=== PATIENT | female | born 1960 | race Caucasian/White ===

== ENCOUNTER 2018-09-11 21:12 | Inpatient (IN) | payer MEDICARE, OTHER ==
[~2018-09-11] VITALS: Ht 157.5 cm; Wt 63.6 kg
[~2018-09-11 21:12] MED LIST: ASPI-831; ATOR40TA68; FLUT16SP24; NORC 5-325
[2018-09-11 21:33] VITALS: Ht 157.5 cm; Wt 63.6 kg
[2018-09-11] MEDS ORDERED: SOD CHLORIDE 0.9% 1,000 ML IV STA (22:02)
[2018-09-11] MEDS ORDERED: DILTIAZEM 25 MG INJ IV ONE ×2 (22:30)
[2018-09-11] MEDS ORDERED: AZITHROMYCIN 500MG/NS (PMX) 250 ML IV STA (22:38)
[2018-09-11] MEDS ORDERED: CEFTRIAXONE 1 GM/50 ML (PMX) 50 ML IVPB STA (22:38)
[2018-09-11] MEDS ORDERED: DILTIAZEM-D5W 125MG/125ML DRIP 125 ML IV SCH ×2 (23:00→23:30)
--- NOTE | 2018-09-11 23:18 | HP ---
Date/Time of Note Date/Time of Note DATE: 09/11/18 TIME: 23:18 Assessment/Plan VTE Prophylaxis Pharmacological prophylaxis: heparin Assessment/Plan Assessment/Plan 1. Atrial fibrillation with RVR -Status post Cardizem 10 mg IV x2, currently on a Cardizem drip, which we will continue -Consider beta-surjit, but cautious due to possible asthma exacerbation as well -Trend troponin -Obtain a 2D echo -Cardiology consult -Check TSH in a.m. 2. Pulmonary edema -Follow-up 2D echo -Will diurese 3. 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 Will add aspirin 4. Asthma Exacerbation -Supplemental oxygen, bronchodilators, steroid. Continue inhaled corticosteroid 5. Hypertension: BP within goal 6. Shortness of breath: Secondary to A. fib, pulmonary edema, asthma exacerbation and A-fib -See above for treatment plan Result Diagram: 09/11/18220109/11/182201 Results 24hrs Laboratory Tests Test 09/11/18 22:02 White Blood Count 6.2 Red Blood Count 4.50 Hemoglobin 13.4 Hematocrit 40.5 Mean Corpuscular Volume 90.0 Mean Corpuscular Hemoglobin 29.8 Mean Corpuscular Hemoglobin Concent 33.1 Red Cell Distribution Width 14.3 Platelet Count 226 Mean Platelet Volume 10.5 H Immature Granulocytes % 0.300 Neutrophils % 61.5 Lymphocytes % 30.2 Monocytes % 4.7 Eosinophils % 2.7 Basophils % 0.6 Nucleated Red Blood Cells % 0.0 Immature Granulocytes # 0.020 Neutrophils # 3.8 Lymphocytes # 1.9 Monocytes # 0.3 Eosinophils # 0.2 Basophils # 0.0 Nucleated Red Blood Cells # 0.0 Sodium Level 140 Potassium Level 3.8 Chloride Level 107 Carbon Dioxide Level 25 Anion Gap 8 Blood Urea Nitrogen 21 H Creatinine 0.63 Est Glomerular Filtrat Rate mL/min > 60 Glucose Level 144 Calcium Level 9.3 Troponin I 0.013 HPI/ROS Admit Date/Time Admit Date/Time Hx of Present Illness This is a 58-year-old female with a history of hypertension, asthma, CVA 2013 with residual dysarthria and right lower extremity weakness who presented to ER complaining of shortness of breath and intermittent palpitations. Denies chest pain. In the ER she was found to be in A-fib with RVR, heart rate in the low 100s. She was given Cardizem 10 mg IV x2 and then was started on Cardizem drip. First troponin negative. Chest x-ray shows the followin. Bilateral perihilar and lower lobe reticulonodular opacifications, suggestive of interstitial pulmonary edema or less likely pneumonia. 2. Mild cardiomegaly with central pulmonary vascular congestion. 3. Small left-sided pleural effusion. 4. Mild atherosclerotic calcification of the thoracic aorta. PMH/Family/Social Past Medical History PMH/Family/Social Past Medical History Medical History: other (see hpi) Coded Allergies: No Known Drug Allergy (Verified Allergy, Unknown, 04/25/16) Past Surgical History Past Surgical Hx: other (see hpi) Family History Significant Family History: no pertinent family hx Social History Alcohol Use: other Smoking Status: Unknown if ever smoked Drug Use: other Medications Current Medications Azithromycin 250 ml @ 250 mls/hr ONCE STAT IV ; Start 09/11/18 at 22:38; Stop 09/11/18 at 23:37 Diltiazem HCl 125 ml @ 5 mls/hr TITRATE IV ; Start 09/11/18 at 23:00 Ondansetron HCl (Zofran Inj) 4 mg ER BRIDGE PRN IV NAUSEA AND/OR VOMITING; Start 09/11/18 at 23:30; Stop 09/12/18 at 23:29 Acetaminophen (Tylenol Tab) 650 mg ER BRIDGE PRN PO MILD PAIN(1-3)OR ELEVATED TEMP; Start 09/11/18 at 23:30; Stop 09/12/18 at 23:29 Coded Allergies: Penicillins (Verified Allergy, Unknown, 09/11/18) Exam/Review of Systems Vital Signs Vitals Vital Signs Date Temp Pulse Resp B/P (MAP) Pulse Ox O2 O2 Flow FiO2 Time Delivery Rate 09/11/18 104 19 113/85 Room Air 22:40 (94) 09/11/18 98.1 98 21:33 Exam Constitutional: other (Shortness of breath noted. Wheezing) Head: normocephalic, atraumatic Eyes: PERRL Respiratory: diminished breath sounds, wheezing Cardiovascular: other (Tachycardic regular rhythm) Gastrointestinal: soft Extremities: normal pulses TOO MCNALLY MD Sep 11, 2018 23:18
[2018-09-11] MEDS ORDERED: ASPIRIN 81 MG TAB PO PRN (23:30)
[2018-09-11] MEDS ORDERED: NITROGLYCERIN (SL) 0.4 MG TAB SL PRN (23:30)
[2018-09-11] MEDS ORDERED: ONDANSETRON 4 MG INJ IV PRN ×2 (23:30)
[2018-09-11] MEDS ORDERED: NACL 0.9% 3 ML SYG IV SCH (23:30)
[2018-09-11] MEDS ORDERED: ACETAMINOPHEN 325 MG TAB PO PRN (23:30)
[2018-09-12] VITALS (13 sets, daily range): BP systolic 104–118; BP diastolic 65–86; PULSE 69–121; RESP 17–22
--- NOTE | 2018-09-12 00:09 | ERD ---
ER Documentation Chief Complaint Chief Complaint SOB x 1week,hx CVA HPI This is a 58-year-old female with a history of hypertension and previous CVA with residual dysarthria who presents to the emergency room for evaluation of shortness of breath for the past week. The patient states that she feels like her heart is beating fast and she has mild chest pain associated with this. The patient came to the ER for evaluation of her symptoms and denies any aggravating or relieving factors for her symptoms at this time. The patient localizes chest pain to the center of her chest and denies any radiation of the pain. ROS All systems reviewed and are negative except as per history of present illness. Medications Home Meds Reported Medications Fluticasone Propionate (Flonase (16 gm)) 1 [place] Rowlett, 1 DAILY 09/30/13 Aspirin (Aspirin) 81 Mg Chew, 1 DAILY 09/30/13 Atorvastatin* (Atorvastatin*) 40 Mg Tablet, 1 DAILY 09/30/13 Hydrocodone Bit-Acetaminophen* ([place]*) 1 Tab Tab, 1 09/30/13 Allergies Allergies: Coded Allergies: Penicillins (Verified Allergy, Unknown, 09/11/18) PMhx/Soc History of Surgery: No Anesthesia Reaction: No Hx Neurological Disorder: No Hx Respiratory Disorders: No Hx Cardiac Disorders: No Hx Psychiatric Problems: No Hx Miscellaneous Medical Probl: Yes (DIVERTICULITIS) Hx Alcohol Use: No Hx Substance Use: No Hx Tobacco Use: No Physical Exam Vitals Vital Signs Date Temp Pulse Resp B/P (MAP) Pulse Ox O2 O2 Flow FiO2 Time Delivery Rate 09/11/18 104 19 113/85 Room Air 22:40 (94) 09/11/18 116 21 117/91 Room Air 22:34 (100) 09/11/18 98.1 118 22 114/62 98 21:33 (79) Physical Exam INITIAL VITAL SIGNS: Reviewed by me GENERAL: The patient is well developed and appropriate for usual state of health in no apparent distress HEENT: Pupils equal, round, and reactive to light. EOMI. There is no scleral icterus. NECK: C-spine is soft and supple, there is no meningismus. There is no cervical lymphadenopathy. LUNGS: Breath sounds bilaterally HEART: Irregularly irregular rhythm, no murmurs, clicks, rubs or gallops. ABDOMEN: Soft, non-tender, non-distended. There are bowel sounds in all four quadrants. No rebound or guarding. EXTREMITIES: There is no peripheral cyanosis or edema. No focal swelling or erythema. NEUROLOGICAL: The patient moves all four extremities with 5/5 strength. Cranial nerves II - XII are intact. Normal gait. Alert and oriented SKIN: There is no apparent rash or petechiae. HEME/LYMPHATIC: There is no evidence of excessive bruising or lymphedema. PSYCHIATRIC: The patient does not appear anxious or depressed. Result Diagram: 09/11/18220109/11/182201 Results 24 hrs Laboratory Tests Test 09/11/18 22:02 White Blood Count 6.2 10^3/ul Red Blood Count 4.50 10^6/ul Hemoglobin 13.4 g/dl Hematocrit 40.5 % Mean Corpuscular Volume 90.0 fl Mean Corpuscular Hemoglobin 29.8 pg Mean Corpuscular Hemoglobin Concent 33.1 g/dl Red Cell Distribution Width 14.3 % Platelet Count 226 10^3/UL Mean Platelet Volume 10.5 fl Immature Granulocytes % 0.300 % Neutrophils % 61.5 % Lymphocytes % 30.2 % Monocytes % 4.7 % Eosinophils % 2.7 % Basophils % 0.6 % Nucleated Red Blood Cells % 0.0 /100WBC Immature Granulocytes # 0.020 10^3/ul Neutrophils # 3.8 10^3/ul Lymphocytes # 1.9 10^3/ul Monocytes # 0.3 10^3/ul Eosinophils # 0.2 10^3/ul Basophils # 0.0 10^3/ul Nucleated Red Blood Cells # 0.0 10^3/ul Sodium Level 140 mmol/L Potassium Level 3.8 mmol/L Chloride Level 107 mmol/L Carbon Dioxide Level 25 mmol/L Anion Gap 8 Blood Urea Nitrogen 21 mg/dl Creatinine 0.63 mg/dl Est Glomerular Filtrat Rate mL/min > 60 mL/min Glucose Level 144 mg/dl Calcium Level 9.3 mg/dl Troponin I 0.013 ng/ml Current Medications Medications Dose Sig/Kev Start Time Status Last (Trade) Ordered Route PRN Stop Time Admin Dose Reason Admin Diltiazem 10 mg ONCE ONCE 09/11/18 DC 09/11/18 HCl IV 22:30 09/11/18 22:07 (Cardizem Iv) 22:31 Sodium 1,000 ml @ Q1H STAT 09/11/18 DC 09/11/18 Chloride 1,000 mls/hr IV 22:02 09/11/18 22:06 23:01 Diltiazem 10 mg ONCE ONCE 09/11/18 DC 09/11/18 HCl IV 22:30 09/11/18 22:34 (Cardizem Iv) 22:31 Ceftriaxone 50 ml @ ONCE STAT 09/11/18 DC 09/11/18 Sodium 100 mls/hr IVPB 22:38 09/11/18 23:01 23:07 Azithromycin 250 ml @ ONCE STAT 09/11/18 DC 09/11/18 250 mls/hr IV 22:38 09/11/18 23:46 23:37 Diltiazem 125 ml @ 5 TITRATE IV 09/11/18 DC HCl mls/hr 23:00 09/11/18 23:22 Ondansetron 4 mg ER BRIDGE 09/11/18 HCl (Zofran PRN IV 23:30 09/12/18 Inj) NAUSEA AND/OR 23:29 VOMITING 650 mg ER BRIDGE 09/11/18 09/12/18 Acetaminophen PRN PO MILD 23:30 09/12/18 00:01 (Tylenol PAIN(1-3)OR 23:29 Tab) ELEVATED TEMP IV Flush 3 ml PER 09/11/18 (NS 3 ml) PROTOCOL IV 23:30 Ondansetron 4 mg Q6H PRN 09/11/18 HCl (Zofran IV NAUSEA 23:30 Inj) AND/OR VOMITING 1 tab Q5M PRN 09/11/18 Nitroglycerin SL CHEST 23:30 PAIN (Nitroglyceri n (Sl Tab) 0.4 Mg) 650 mg Q6H PRN 09/11/18 Acetaminophen PO PAIN 23:30 (Tylenol LEVEL 1-3 OR Tab) FEVER Enoxaparin 40 mg DAILY SC 09/12/18 Sodium 09:00 (Lovenox) Aspirin 1 mg Q6H PRN 09/11/18 (Aspirin) PO pain > 5 23:30 20 mg HS PO 09/12/18 Atorvastatin 21:00 Calcium (Lipitor) Fluticasone 1 spray DAILY 09/12/18 Propionate NASAL 09:00 (Flonase 0.05% Nasal) Metoprolol 25 mg Q12 PO 09/11/18 Tartrate 23:30 (Lopressor) 0.63 mg Q4H RESP 09/11/18 Levalbuterol THERAPY PRN 23:30 (Xopenex HHN Neb) sob/wheezing Ipratropium 0.5 mg Q4H RESP 09/11/18 [place] THERAPY PRN 23:30 (Atrovent HHN 0.02% sob/wheezing (Neb)) Diltiazem 125 ml @ 5 TITRATE IV 09/11/18 09/11/18 HCl mls/hr 23:30 23:34 Procedures/MDM EKG: Rate/Rhythm: A. fib with RVR QRS, ST, T-waves: Specific ST and T wave abnormalities Impression: A. fib with RVR EKG: #2 Rate/Rhythm: A. fib with RVR QRS, ST, T-waves: Specific ST and T wave abnormalities Impression: A. fib with RVR Chest X-ray 1V Interpreted by me: Soft Tissue: Bilateral perihilar and reticular nodular infiltrate suggestive of pneumonia versus pulmonary edema Bones: No acute abnormalities Mediastinum/Cardiac Silhouette/Lungs: [No acute abnormalities] This 58-year-old female with a history of hypertension and CVA presents to the ER for evaluation of heart palpitations and shortness of breath. The patient was in A. fib with RVR. She was given 20 mg of Cardizem and still remained in A. fib with RVR with a rate greater than 110. Her lab work looks normal at this time, troponin is negative however her chest x-ray does show what appears to be pulmonary edema versus pneumonia. Blood cultures were obtained and the patient was given 1 L of fluid and was started on the Rocephin and azithromycin for community-acquired coverage. Given the fact that the patient remained tachycardic and remained in A. fib with RVR the patient was started on the Cardizem drip. The patient has no history of A. fib with RVR however I do not have a time of onset of her symptoms she has had the symptoms for a few days and almost 1 week. She will need to be admitted at this time for rate control and p ossible anticoagulation given her chads score. The patient will be admitted to the telemetry floor under the care of Dr. Shanks Critical Care: Excluding all billable procedures Time: 48 minutes Treatments/Evaluations: Close monitoring and treatment of unstable vital signs, cardiorespiratory, and neurologic status, while maintaining tight balance of fluid, respiratory, and cardiac interventions. Departure Diagnosis: Primary Impression: Atrial fibrillation with RVR Additional Impressions: Bilateral pneumonia Pulmonary edema Shortness of breath Condition: Serious BUNNYMIRIAMGENNY LOTT Sep 12, 2018 00:09
[2018-09-12] MEDS: METOPROLOL 25 MG TAB PO SCH ×3 (02:04→20:34)
[2018-09-12] MEDS: LEVALBUTEROL (NEB) 0.63 MG/3 ML AMP HHN PRN ×2 (03:14→08:12)
[2018-09-12] MEDS: IPRATROPIUM (NEB) 0.5 MG/2.5 ML AMP HHN PRN ×2 (03:14→08:11)
[2018-09-12] MEDS ORDERED: FUROSEMIDE 20 MG INJ IV ONE (08:30)
[2018-09-12] MEDS ORDERED: METHYLPREDNISOLONE 125 MG INJ IV STA (08:33)
[2018-09-12] MEDS: LEVOFLOXACIN 500MG/D5W (PMX) 100 ML IVPB SCH ×2 (08:46→10:27)
[2018-09-12] MEDS ORDERED: ENOXAPARIN 40 MG/0.4 ML SYG SC SCH (09:00)
[2018-09-12] MEDS: FLUTICASONE 0.05% 16 GM NAS SPRAY NASAL SCH (09:00)
[2018-09-12] MEDS ORDERED: FUROSEMIDE 40 MG INJ IV ONE (09:00)
[2018-09-12] MEDS ORDERED: FUROSEMIDE 20 MG TAB PO SCH (09:00)
[2018-09-12] MEDS ORDERED: ASPIRIN (EC) 81 MG TAB PO SCH (09:00)
[2018-09-12] MEDS ORDERED: ALBUTEROL/IPRATROPIUM (NEB) 3 ML AMP HHN PRN (09:30)
[2018-09-12] MEDS ORDERED: FUROSEMIDE 20 MG INJ IV SCH (09:30)
[2018-09-12] MEDS: BUDESONIDE (NEB) 0.5MG/2ML AMP HHN SCH ×2 (09:30→20:00)
--- NOTE | 2018-09-12 13:02 | PN ---
Date/Time of Note Date/Time of Note DATE: 09/12/18 TIME: 13:01 Objective Vitals Vital Signs Date Temp Pulse Resp B/P (MAP) Pulse Ox O2 O2 Flow FiO2 Time Delivery Rate 09/12/18 97.9 69 17 109/68 96 11:58 (82) 09/12/18 2.0 08:15 09/12/18 Nasal 28 08:13 Cannula Intake and Output 09/11/18 09/11/18 09/12/18 1515:00 23:00 07:00 IntakeIntake Total 160 ml OutputOutput Total 0 ml BalanceBalance 160 ml Results Result Diagram: 09/12/18 0307 09/12/18 0307 Medications Medications Current Medications Ondansetron HCl (Zofran Inj) 4 mg ER BRIDGE PRN IV NAUSEA AND/OR VOMITING; Start 09/11/18 at 23:30; Stop 09/12/18 at 23:29 Acetaminophen (Tylenol Tab) 650 mg ER BRIDGE PRN PO MILD PAIN(1-3)OR ELEVATED TEMP Last administered on 09/12/18at 00:01; Admin Dose 650 MG; Start 09/11/18 at 23:30; Stop 09/12/18 at 23:29 IV Flush (NS 3 ml) 3 ml PER PROTOCOL IV ; Start 09/11/18 at 23:30 Ondansetron HCl (Zofran Inj) 4 mg Q6H PRN IV NAUSEA AND/OR VOMITING; Start 09/11/18 at 23:30 Nitroglycerin (Nitroglycerin (Sl Tab) 0.4 Mg) 1 tab Q5M PRN SL CHEST PAIN; Start 09/11/18 at 23:30 Acetaminophen (Tylenol Tab) 650 mg Q6H PRN PO PAIN LEVEL 1-3 OR FEVER; Start 09/11/18 at 23:30 Enoxaparin Sodium (Lovenox) 40 mg DAILY SC Last administered on 09/12/18at 08:56; Admin Dose 40 MG; Start 09/12/18 at 09:00 Atorvastatin Calcium (Lipitor) 20 mg HS PO ; Start 09/12/18 at 21:00 Fluticasone Propionate (Flonase 0.05% Nasal) 1 spray DAILY NASAL ; Start 09/12/18 at 09:00 Metoprolol Tartrate (Lopressor) 25 mg Q12 PO Last administered on 09/12/18at 08:47; Admin Dose 25 MG; Start 09/11/18 at 23:30 Influenza Virus Vaccine Quadrival (Fluzone) 0.5 ml ONCE ONCE IM* ; Start 09/13/18 at 10:00; Stop 09/13/18 at 10:01 Levofloxacin/ Dextrose 100 ml @ 100 mls/hr DAILY IVPB Last administered on 09/12/18at 10:27; Admin Dose 100 MLS/HR; Start 09/12/18 at 09:00 Aspirin (Halfprin) 81 mg DAILY PO Last administered on 09/12/18at 08:46; Admin Dose 81 MG; Start 09/12/18 at 09:00 Methylprednisolone Sodium Succinate (Solu-Medrol) 40 mg BID IV ; Start 09/13/18 at 21:00 Albuterol/ Ipratropium (Duoneb) 3 ml Q6HWA RESP THERAPY HHN ; Start 09/12/18 at 14:00 Albuterol/ Ipratropium (Duoneb) 3 ml Q2H RESP THERAPY PRN HHN shortness of breath; Start 09/12/18 at 09:30 Budesonide (Pulmicort (Neb)) 0.5 mg BID RESP THERAPY HHN ; Start 09/12/18 at 09:30 Furosemide (Lasix) 20 mg DAILY IV ; Start 09/13/18 at 09:00 VTE Prophylaxis Risk score (from Ns)>0 risk: 4 SCD applied (from [facility]): Yes Lines/Catheters IV Catheter Type: Fink in Place: No Assessment/Plan Hospital Course Subjective Patient feeling much better Objective Physical exam General: Patient is laying in bed and answers questions appropriately Mentation: Patient is alert and oriented 4, Head: Normocephalic atraumatic Eyes: EOMI, pupils reactive to light Neck: Supple, nontender, midline Respiratory: Wheezing to auscultation bilaterally Cardiovascular: regular rate, no obvious murmurs Gastrointestinal: non-tender to palpation, bowel sounds heard. Neurological: Moves all extremities spontaneously, mild R sided deficits when compared to left (chronic) Skin: No new skin lesions Assessment and plan Acute hypoxic respiratory failure -Secondary to pulmonary edema and asthma exacerbation Asthma exacerbation -DuoNeb, budesonide -IV steroids -02 A. 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 fib with RVR, cardiology consultation pending JAMES ANGELES Sep 12, 2018 13:01
[2018-09-12] MEDS: ALBUTEROL/IPRATROPIUM (NEB) 3 ML AMP HHN SCH ×2 (13:54→20:00)
[2018-09-12] MEDS: ACETAMINOPHEN 325 MG TAB PO PRN ×2 (15:16→17:25)
--- NOTE | 2018-09-12 15:16 | CONS ---
Date/Time of Note Date/Time of Note DATE: 09/12/18 TIME: 15:11 Assessment/Plan Assessment/Plan Hospital Course 1. Atrial fibrillation rapid ventricular response: Unclear if this is a new onset or chronic 2. History of CVA 3. Mild hypertension 4. Hypoxemic respiratory failure probably related to above 5. Pulmonary vascular congestion/congestive heart failure acute with acute on chronic probably secondary diastolic heart failure and possible valvular heart disease 6. Dyslipidemia Recommendations: I will start the patient on full anticoagulation with Eliquis. Echocardiogram has been ordered. I will waiting to be done to evaluate personally IV Lasix has been given Electrolyte to be correct as needed metoprolol to be continued. IV Cardizem will be given as needed basis IV digoxin will be given to control the heart rate better We will monitor closely on the telemetry Statins to be continued given history of CVA Thank you for his referral will continue to follow along with you EMILY CASTAÑEDA MD [facility] Result Diagram: 09/12/18 0307 09/12/18 0307 Results 24hrs Laboratory Tests Test 09/11/18 22:02 09/11/18 23:54 09/12/18 03:07 09/12/18 07:30 White Blood Count 6.2 7.1 Red Blood Count 4.50 4.01 L Hemoglobin 13.4 11.9 L Hematocrit 40.5 36.0 L Mean Corpuscular Volume 90.0 89.8 Mean Corpuscular 29.8 29.7 Hemoglobin Mean Corpuscular 33.1 33.1 Hemoglobin Concent Red Cell Distribution 14.3 14.6 H Width Platelet Count 226 197 Mean Platelet Volume 10.5 H 10.6 H Immature Granulocytes % 0.300 0.400 Neutrophils % 61.5 56.9 Lymphocytes % 30.2 34.9 Monocytes % 4.7 4.8 Eosinophils % 2.7 2.6 Basophils % 0.6 0.4 Nucleated Red Blood 0.0 0.0 Cells % Immature Granulocytes # 0.020 0.030 Neutrophils # 3.8 4.0 Lymphocytes # 1.9 2.5 Monocytes # 0.3 0.3 Eosinophils # 0.2 0.2 Basophils # 0.0 0.0 Nucleated Red Blood 0.0 0.0 Cells # Sodium Level 140 143 Potassium Level 3.8 4.0 Chloride Level 107 112 H Carbon Dioxide Level 25 24 Anion Gap 8 7 Blood Urea Nitrogen 21 H 20 Creatinine 0.63 0.56 Est Glomerular Filtrat > 60 > 60 Rate mL/min Glucose Level 144 113 Calcium Level 9.3 8.5 Troponin I 0.013 0.014 0.014 0.012 Creatine Kinase 48 38 45 Creatine Kinase Index 1.8 2.6 2.3 Creatinine Kinase MB 0.85 0.97 1.03 (Mass) Hemoglobin A1c 5.7 Lactic Acid Level 0.9 Magnesium Level 1.9 Total Bilirubin 0.2 Direct Bilirubin 0.00 Indirect Bilirubin 0.2 Aspartate Amino 30 Transf (AST/SGOT) Alanine 33 Aminotransferase (ALT/SG PT) Alkaline Phosphatase 118 Total Protein 6.4 Albumin 3.5 Globulin 2.90 Albumin/Globulin Ratio 1.20 Triglycerides Level 313 H Cholesterol Level 157 LDL Cholesterol, 64 Calculated HDL Cholesterol 30 L Cholesterol/HDL Ratio 5.2 Thyroid Stimulating 0.700 Hormone (TSH) Test 09/12/18 11:49 Creatine Kinase 51 Creatine Kinase Index 1.9 Creatinine Kinase MB 0.99 (Mass) Troponin I < 0.012 Consultation Date/Type/Reason Admit Date/Time Date of Consultation: Sep 12, 2018 Type of Consult cv Reason for Consultation AFIB Requesting Provider: JAMES ANGELES Hx of Present Illness Interventional cardiology consultation note Chief complaint: Shortness of breath Reason for consult: Atrial fibrillation History of present illness: Thank you for this referral. History was obtained from the patient, from dis cussion with her daughter review of the chart review of the old chart discussion with physician staff. This is a very pleasant 58-year-old female history of CVA in the past who has been having increasing shortness of breath over the past few days. Patient has also had some cough but no phlegm. No fever no chills. She was seen in the emergency room of the noted to have atrial fibrillation rapid ventricular response. She denies any chest pain or pressure to me. She is not aware of any history of atrial fibrillation in the past however she might have been on blood thinners in the past which she has stopped due to insurance reason. She denies PND orthopnea to me. Denies any oximetry edema. Allergies: Penicillins Medications were reviewed as per medical reconciliation sheet Family history: No history of early coronary artery disease Social history: Does not smoke or drink Past medical history: History of CVA in 2013, hypertension, dyslipidemia, history of valvular heart disease with 1 of the valve "leaking" Review of system: Patient denies all others except for above-mentioned Past Medical History Medications Current Medications Ondansetron HCl (Zofran Inj) 4 mg ER BRIDGE PRN IV NAUSEA AND/OR VOMITING; S tart 09/11/18 at 23:30; Stop 09/12/18 at 23:29 Acetaminophen (Tylenol Tab) 650 mg ER BRIDGE PRN PO MILD PAIN(1-3)OR ELEVATED TEMP Last administered on 09/12/18at 00:01; Admin Dose 650 MG; Start 09/11/18 at 23:30; Stop 09/12/18 at 23:29 IV Flush (NS 3 ml) 3 ml PER PROTOCOL IV ; Start 09/11/18 at 23:30 Ondansetron HCl (Zofran Inj) 4 mg Q6H PRN IV NAUSEA AND/OR VOMITING; Start 09/11/18 at 23:30 Nitroglycerin (Nitroglycerin (Sl Tab) 0.4 Mg) 1 tab Q5M PRN SL CHEST PAIN; Start 09/11/18 at 23:30 Acetaminophen (Tylenol Tab) 650 mg Q6H PRN PO PAIN LEVEL 1-3 OR FEVER; Start 09/11/18 at 23:30 Enoxaparin Sodium (Lovenox) 40 mg DAILY SC Last administered on 09/12/18at 08:56; Admin Dose 40 MG; Start 09/12/18 at 09:00 Atorvastatin Calcium (Lipitor) 20 mg HS PO ; Start 09/12/18 at 21:00 Fluticasone Propionate (Flonase 0.05% Nasal) 1 spray DAILY NASAL ; Start 09/12/18 at 09:00 Metoprolol Tartrate (Lopressor) 25 mg Q12 PO Last administered on 09/12/18at 08:47; Admin Dose 25 MG; Start 09/11/18 at 23:30 Influenza Virus Vaccine Quadrival (Fluzone) 0.5 ml ONCE ONCE IM* ; Start 09/13/18 at 10:00; Stop 09/13/18 at 10:01 Levofloxacin/ Dextrose 100 ml @ 100 mls/hr DAILY IVPB Last administered on 09/12/18at 10:27; Admin Dose 100 MLS/HR; Start 09/12/18 at 09:00 Aspirin (Halfprin) 81 mg DAILY PO Last administered on 09/12/18at 08:46; Admin Dose 81 MG; Start 09/12/18 at 09:00 Methylprednisolone Sodium Succinate (Solu-Medrol) 40 mg BID IV ; Start 09/13/18 at 21:00 Albuterol/ Ipratropium (Duoneb) 3 ml Q6HWA RESP THERAPY HHN Last administered on 09/12/18at 13:54; Admin Dose 3 ML; Start 09/12/18 at 14:00 Albuterol/ Ipratropium (Duoneb) 3 ml Q2H RESP THERAPY PRN HHN shortness of breath; Start 09/12/18 at 09:30 Budesonide (Pulmicort (Neb)) 0.5 mg BID RESP THERAPY HHN ; Start 09/12/18 at 09:30 Furosemide (Lasix) 20 mg DAILY IV ; Start 09/13/18 at 09:00 Allergies: Coded Allergies: Penicillins (Verified Allergy, Unknown, 09/11/18) Social History Smoking Status: Never smoker Exam/Review of Systems Vital Signs Vitals Vital Signs Date Temp Pulse Resp B/P (MAP) Pulse Ox O2 O2 Flow FiO2 Time Delivery Rate 09/12/18 105 18 95 Nasal 2.0 28 13:55 Cannula 09/12/18 97.9 109/68 11:58 (82) Intake and Output 09/11/18 09/11/18 09/12/18 1515:00 23:00 07:00 IntakeIntake Total 160 ml OutputOutput Total 0 ml BalanceBalance 160 ml Exam General: no acute distress HEENT: NC/AT. pupils are equal. round. NECK: NO JVD. no stridor. CV: Irregularly irregular. systolic murmur; no gallop or rubs. PULM: no wheezing or rhonchi. GI: SOFT, NT, ND, no rebound or guarding Extremity: trace B/L LE edema. no clubbing. neuro: awake and alert, OX3. With right-sided weakness Psych: calm and pleasant rectal: deferred EKG was personally reviewed showed atrial fibrillation with ventricular response. Nonspecific ST-T wave abnormalities l Chest x-ray shows: 1. Bilateral perihilar and lower lobe reticulonodular opacifications, suggestive of interstitial pulmonary edema or less likely pneumonia. 2. Mild cardiomegaly with central pulmonary vascular congestion. 3. Small left-sided pleural effusion. 4. Mild atherosclerotic calcification of the thoracic aorta. Medications Medications Current Medications Ondansetron HCl (Zofran Inj) 4 mg ER BRIDGE PRN IV NAUSEA AND/OR VOMITING; Start 09/11/18 at 23:30; Stop 09/12/18 at 23:29 Acetaminophen (Tylenol Tab) 650 mg ER BRIDGE PRN PO MILD PAIN(1-3)OR ELEVATED TEMP Last administered on 09/12/18at 00:01; Admin Dose 650 MG; Start 09/11/18 at 23:30; Stop 09/12/18 at 23:29 IV Flush (NS 3 ml) 3 ml PER PROTOCOL IV ; Start 09/11/18 at 23:30 Ondansetron HCl (Zofran Inj) 4 mg Q6H PRN IV NAUSEA AND/OR VOMITING; Start 09/11/18 at 23:30 Nitroglycerin (Nitroglycerin (Sl Tab) 0.4 Mg) 1 tab Q5M PRN SL CHEST PAIN; Start 09/11/18 at 23:30 Acetaminophen (Tylenol Tab) 650 mg Q6H PRN PO PAIN LEVEL 1-3 OR FEVER; Start 09/11/18 at 23:30 Enoxaparin Sodium (Lovenox) 40 mg DAILY SC Last administered on 09/12/18at 08:56; Admin Dose 40 MG; Start 09/12/18 at 09:00 Atorvastatin Calcium (Lipitor) 20 mg HS PO ; Start 09/12/18 at 21:00 Fluticasone Propionate (Flonase 0.05% Nasal) 1 spray DAILY NASAL ; Start 09/12/18 at 09:00 Metoprolol Tartrate (Lopressor) 25 mg Q12 PO Last administered on 09/12/18at 08:47; Admin Dose 25 MG; Start 09/11/18 at 23:30 Influenza Virus Vaccine Quadrival (Fluzone) 0.5 ml ONCE ONCE IM* ; Start 09/13/18 at 10:00; Stop 09/13/18 at 10:01 Levofloxacin/ Dextrose 100 ml @ 100 mls/hr DAILY IVPB Last administered on 09/12/18at 10:27; Admin Dose 100 MLS/HR; Start 09/12/18 at 09:00 Aspirin (Halfprin) 81 mg DAILY PO Last administered on 09/12/18at 08:46; Admin Dose 81 MG; Start 09/12/18 at 09:00 Methylprednisolone Sodium Succinate (Solu-Medrol) 40 mg BID IV ; Start 09/13/18 at 21:00 Albuterol/ Ipratropium (Duoneb) 3 ml Q6HWA RESP THERAPY HHN Last administered on 09/12/18at 13:54; Admin Dose 3 ML; Start 09/12/18 at 14:00 Albuterol/ Ipratropium (Duoneb) 3 ml Q2H RESP THERAPY PRN HHN shortness of breath; Start 09/12/18 at 09:30 Budesonide (Pulmicort (Neb)) 0.5 mg BID RESP THERAPY HHN ; Start 09/12/18 at 09:30 Furosemide (Lasix) 20 mg DAILY IV ; Start 09/13/18 at 09:00 EMILY CASTAÑEDA MD Sep 12, 2018 15:16
[2018-09-12] MEDS: DIGOXIN 500 MCG INJ IV SCH ×2 (17:26→21:20)
[2018-09-12] MEDS ORDERED: DILTIAZEM 25 MG INJ IV PRN (19:00)
[2018-09-12] MEDS: APIXABAN 5 MG TABLET PO SCH (20:34)
[2018-09-12] MEDS: ATORVASTATIN 20 MG TAB PO SCH (20:34)
[2018-09-13] VITALS (13 sets, daily range): BP systolic 96–119; BP diastolic 61–82; PULSE 82–115; RESP 18
[2018-09-13] MEDS: DIGOXIN 500 MCG INJ IV SCH ×2 (01:01→05:11)
[2018-09-13] MEDS: ALBUTEROL/IPRATROPIUM (NEB) 3 ML AMP HHN SCH ×3 (07:47→20:17)
[2018-09-13] MEDS: BUDESONIDE (NEB) 0.5MG/2ML AMP HHN SCH ×2 (07:48→20:17)
[2018-09-13] MEDS: APIXABAN 5 MG TABLET PO SCH ×2 (08:24→20:06)
[2018-09-13] MEDS: METOPROLOL 25 MG TAB PO SCH ×2 (08:25→20:02)
[2018-09-13] MEDS: FUROSEMIDE 20 MG INJ IV SCH (08:26)
[2018-09-13] MEDS: LEVOFLOXACIN 500MG/D5W (PMX) 100 ML IVPB SCH (08:30)
[2018-09-13] MEDS ORDERED: METHYLPREDNISOLONE 125 MG INJ IV SCH (09:00)
[2018-09-13] MEDS ORDERED: predniSONE 20 MG TAB PO SCH (09:30)
[2018-09-13] MEDS: FLUTICASONE 0.05% 16 GM NAS SPRAY NASAL SCH (10:44)
--- NOTE | 2018-09-13 12:39 | PN ---
Date/Time of Note Date/Time of Note DATE: 09/13/18 TIME: 12:37 Objective Vitals Vital Signs Date Temp Pulse Resp B/P (MAP) Pulse Ox O2 O2 Flow FiO2 Time Delivery Rate 09/13/18 90 12:20 09/13/18 97.8 18 96/61 (73) 96 Nasal 11:56 Cannula 09/13/18 3.0 07:50 09/13/18 32 07:48 Intake and Output 09/12/18 09/12/18 09/13/18 1515:00 23:00 07:00 IntakeIntake Total 925 ml 120 ml OutputOutput Total 7 ml 2 ml BalanceBalance 918 ml 118 ml Results Result Diagram: 09/13/18 0558 09/13/1858 Medications Medications Current Medications IV Flush (NS 3 ml) 3 ml PER PROTOCOL IV ; Start 09/11/18 at 23:30 Ondansetron HCl (Zofran Inj) 4 mg Q6H PRN IV NAUSEA AND/OR VOMITING; Start 09/11/18 at 23:30 Nitroglycerin (Nitroglycerin (Sl Tab) 0.4 Mg) 1 tab Q5M PRN SL CHEST PAIN; Start 09/11/18 at 23:30 Acetaminophen (Tylenol Tab) 650 mg Q6H PRN PO PAIN LEVEL 1-3 OR FEVER Last administered on 09/12/18at 17:25; Admin Dose 650 MG; Start 09/11/18 at 23:30 Atorvastatin Calcium (Lipitor) 20 mg HS PO Last administered on 09/12/18at 20:34; Admin Dose 20 MG; Start 09/12/18 at 21:00 Fluticasone Propionate (Flonase 0.05% Nasal) 1 spray DAILY NASAL Last administered on 09/13/18at 10:44; Admin Dose 1 SPRAY; Start 09/12/18 at 09:00 Metoprolol Tartrate (Lopressor) 25 mg Q12 PO Last administered on 09/13/18at 08:25; Admin Dose 25 MG; Start 09/11/18 at 23:30 Levofloxacin/ Dextrose 100 ml @ 100 mls/hr DAILY IVPB Last administered on 09/13/18at 08:30; Admin Dose 100 MLS/HR; Start 09/12/18 at 09:00 Albuterol/ Ipratropium (Duoneb) 3 ml Q6HWA RESP THERAPY HHN Last administered on 09/13/18 07:47; Admin Dose 3 ML; Start 09/12/18 at 14:00 Albuterol/ Ipratropium (Duoneb) 3 ml Q2H RESP THERAPY PRN HHN shortness of breath Last administered on 09/13/18 01:30; Admin Dose 3 ML; Start 09/12/18 at 09:30 Budesonide (Pulmicort (Neb)) 0.5 mg BID RESP THERAPY HHN Last administered on 09/13/18 07:48; Admin Dose 0.5 MG; Start 09/12/18 at 09:30 Furosemide (Lasix) 20 mg DAILY IV Last administered on 09/13/18 08:26; Admin Dose 20 MG; Start 09/13/18 at 09:00 Apixaban (Eliquis) 5 mg BID PO Last administered on 09/13/18 08:24; Admin Dose 5 MG; Start 09/12/18 at 21:00 Diltiazem HCl (Cardizem Iv) 5 mg Q1H PRN IV HEART RATE > 110 Last administered on 09/12/18 19:11; Admin Dose 5 MG; Start 09/12/18 at 19:00 Prednisone (Prednisone) 40 mg DAILY PO Last administered on 09/13/18 10:43; Admin Dose 40 MG; Start 09/13/18 at 09:30 VTE Prophylaxis Risk score (from Nsg)>0 risk: 4 SCD applied (from Ns): Yes Lines/Catheters IV Catheter Type: Fink in Place: No Assessment/Plan Hospital Course Subjective Patient feeling much better Objective Physical exam General: Patient is laying in bed and answers questions appropriately Mentation: Patient is alert and oriented 4, Head: Normocephalic atraumatic Eyes: EOMI, pupils reactive to light Neck: Supple, nontender, midline Respiratory: Wheezing to auscultation bilaterally Cardiovascular: regular rate, no obvious murmurs Gastrointestinal: non-tender to palpation, bowel sounds heard. Neurological: Moves all extremities spontaneously, mild R sided deficits when compared to left (chronic), chronic speech issues Skin: No new skin lesions Assessment and plan Acute hypoxic respiratory failure -Secondary to pulmonary edema and asthma exacerbation Asthma exacerbation -DuoNeb, budesonide -IV steroids to po now -abx for possible pna involvement A. fib with RVR -New onset -Cardiology consulted -Echo pending read -eliquis started per cards Pulmonary edema -Cardiology consulted -Echo pending, assess for new onset CHF -IV Lasix for now History of CVA in 2013 with residual dysarthria and right-sided weakness -Continue statin Hypertension -Control as needed Disposition -Treat for asthma exacerbation and possible new onset CHF as well as A. fib with RVR, cardiology recs appreciated JAMES ANGELES Sep 13, 2018 12:39
--- NOTE | 2018-09-13 15:35 | RADRPT ---
Echocardiogram Report Patient Name: DAYAMI ROSALES Gender: Female Date: 1960 Study Date: 13-Sep-2018 [employer]: MARK ANTHONY Location: I Height(Cm): 157 Weight(Kg): 64 BSA: 1.66 Ref. Physician: TOO MCNALLY Quality: Adequate Procedures: Transthoracic echocardiogram with complete 2D, M-Mode, and doppler examination. Indications: Atrial Fibrillation. 2D/M Mode Doppler Measurement Value Normal Ranges Measurement Value Normal Ranges LA Volume 94.7 ml AV Peak Cristian 2.3 m/sec LA Volume Index 58 ml/m2 AV Peak PG 21.0 mmHg LA Area 24.8 cm2 AI Peak PG 73.0 mmHg LVIDd 2D 3.8 3.5 - 5.6 cm AI Peak Cristian 4.3 m/sec LVIDs 2D 2.5 2.1 - 4.1 cm AI PHT 708.0 msec LVPWd 2D 0.9 0.6 - 1.1 cm LVOT Peak Cristian 0.9 m/sec IVSd 2D 1.1 0.6 - 1.1 cm LVOT Peak PG 3.0 mmHg AoR Diam 2D 2.9 2.0 - 3.7 cm MV PHT 211.0 msec LA/Ao 2D 2 0 - 1 MV Peak Cristian 2.3 m/sec LA Dimen 2D 4.6 2.3 - 4.0 cm MV Peak PG 22.0 mmHg MV Mean Cristian 1.6 m/sec MV Mean PG 12.0 mmHg MV Decel Nash 3 MV PHT Peak Cristian 2.5 m/sec MV PHT 211.0 msec MV VTI 84.4 cm MVA PHT 1.0 cm2 TR Peak Cristian 3.1 m/sec TR Peak PG 38.0 mmHg PV Peak Cristian 1.0 m/sec PV Peak PG 4.0 mmHg RVSP 41.0 mmHg Findings Left Ventricle: Normal left ventricular systolic function. Normal left ventricular cavity size. Normal left ventricular wall thickness. Ejection fraction is visually estimated at 55 %. Tissue Doppler/Mitral Doppler indices are indeterminate in this study due to the presence of mitral stenosis. Right Ventricle: Normal right ventricular size. Normal right ventricular systolic function. Left Atrium: There is severe enlargement of left atrium this is best appreciated by LA volume index. LA Volume Index=57. Right Atrium: The right atrium is normal in size. Atrial Septum: Normal atrial septum. Mitral Valve: Mitral valve leaflets appear moderately thickened. Moderate mitral leaflet calcification. Mild to moderate mitral valve regurgitation. The regurgitation jet is eccentrically directed which may underestimate the severity of mitral regurgitation. Moderate to severe mitral stenosis. Mitral valve Max Velocity 2.30 m/sec. MaxPG 22.00 mmHg. MeanPG 12.00 mmHg. Mitral Valve Area by PHT1.04 cm2. 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 Aortic Valve: No hemodynamically significant aortic stenosis by doppler. Aortic sclerosis without significant stenosis. Aortic cusps appear mildly calcified. Trileaflet aortic valve. Mild aortic valve regurgitation. Tricuspid Valve: Normal appearance of the tricuspid valve. Estimated peak PA systolic pressure 41 mmHg. There is mild tricuspid regurgitation. Pulmonic Valve: Normal pulmonic valve appearance. There is trace pulmonic regurgitation. Pericardium: Normal pericardium with no significant pericardial effusion. Pleural effusion seen. Aorta: Normal aortic root. IVC: Normal size and normal respiratory collapse consistent with normal right atrial pressure. Pulmonary Artery: Normal pulmonary artery size. Conclusions There is severe enlargement of left atrium this is best appreciated by LA volume index. LA Volume Index=57. Normal left ventricular systolic function. Normal left ventricular cavity size. Normal left ventricular wall thickness. Ejection fraction is visually estimated at 55 %. Tissue Doppler/Mitral Doppler indices are indeterminate in this study due to the presence of mitral stenosis. Mitral valve leaflets appear moderately thickened. Moderate mitral leaflet calcification. Mild to moderate mitral valve regurgitation. The regurgitation jet is eccentrically directed which may underestimate the severity of mitral regurgitation. Moderate to severe mitral stenosis. Mitral valve Max Velocity 2.30 m/sec. MaxPG 22.00 mmHg. MeanPG 12.00 mmHg. Mitral Valve Area by PHT1.04 cm2. 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 No hemodynamically significant aortic stenosis by doppler. Aortic sclerosis without significant stenosis. Aortic cusps appear mildly calcified. Trileaflet aortic valve. Mild aortic valve regurgitation. Normal appearance of the tricuspid valve. Estimated peak PA systolic pressure 41 mmHg. There is mild tricuspid regurgitation. Electronically Signed By: Nicholas Alves 13-Sep-2018 15:34:38 -0800 Patient Name: DAYAMI ROSALES Study Date: 13-Sep-2018 [id number]
--- NOTE | 2018-09-13 15:52 | CONS ---
Date/Time of Note Date/Time of Note DATE: 09/13/18 TIME: 15:50 Consult Date/Type/Reason Admit Date/Time Sep 11, 2018 at 23:08 Initial Consult Date 09/12/18 Requesting Provider: JAMES ANGELES Subjective Cardiology follow-up progress note Subjective: Case discussed with staff and telemetry was reviewed. Patient remains in atrial fibrillation. Intermittently with rapid ventricular response She denies any chest pain or pressure to me and breathing has significantly im proved no palpitation no bleeding Adjunctive: General: no acute distress HEENT: NC/AT. pupils are equal. round. NECK: NO JVD. no stridor. CV: Irregularly irregular. systolic murmur; no gallop or rubs. PULM: no wheezing or rhonchi. GI: SOFT, NT, ND, no rebound or guarding Extremity: trace B/L LE edema. no clubbing. neuro: awake and alert, OX3. With right-sided weakness Psych: calm and pleasant rectal: deferred EKG was personally reviewed showed atrial fibrillation with ventricular resp onse. Nonspecific ST-T wave abnormalities l Chest x-ray shows: 1. Bilateral perihilar and lower lobe reticulonodular opacifications, suggestive of interstitial pulmonary edema or less likely pneumonia. 2. Mild cardiomegaly with central pulmonary vascular congestion. 3. Small left-sided pleural effusion. 4. Mild atherosclerotic calcification of the thoracic aorta. Echocardiogram was personally reviewed which shows: There is severe enlargement of left atrium this is best appreciated by LA volume index. LA Volume Index=57. Normal left ventricular systolic function. Normal left ventricular cavity size. Normal left ventricular wall thickness. Ejection fraction is visually estimated at 55 %. Tissue Doppler/Mitral Doppler indices are indeterminate in this study due to the presence of mitral stenosis. Mitral valve leaflets appear moderately thickened. Moderate mitral leaflet calcification. Mild to moderate mitral valve regurgitation. The regurgitation jet is eccentrically directed which may underestimate the severity of mitral regurgitation. Moderate to severe mitral stenosis. Mitral valve Max Velocity 2.30 m/sec. MaxPG 22.00 mmHg. MeanPG 12.00 mmHg. Mitral Valve Area by PHT1.04 cm2. 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 No hemodynamically significant aortic stenosis by doppler. Aortic sclerosis without significant stenosis. Aortic cusps appear mildly calcified. Trileaflet aortic valve. Mild aortic valve regurgitation. Normal appearance of the tricuspid valve. Estimated peak PA systolic pressure 41 mmHg. There is mild tricuspid regurgitation. Objective Vital Signs Date Temp Pulse Resp B/P (MAP) Pulse Ox O2 O2 Flow FiO2 Time Delivery Rate 09/13/18 97.4 111 18 106/74 96 Nasal 15:22 (85) Cannula 09/13/18 3.0 32 13:53 Intake and Output 09/12/18 09/12/18 09/13/18 1515:00 23:00 07:00 IntakeIntake Total 925 ml 120 ml OutputOutput Total 7 ml 2 ml BalanceBalance 918 ml 118 ml Results/Medications Result Diagram: 09/13/18 0558 09/13/18 0558 Results 24 hrs Laboratory Tests Test 09/13/18 05:58 White Blood Count 10.3 # Red Blood Count 4.22 Hemoglobin 12.5 Hematocrit 37.8 Mean Corpuscular Volume 89.6 Mean Corpuscular Hemoglobin 29.6 Mean Corpuscular Hemoglobin Concent 33.1 Red Cell Distribution Width 14.0 Platelet Count 226 Mean Platelet Volume 10.6 H Immature Granulocytes % 0.700 H Neutrophils % 89.3 H Lymphocytes % 7.5 L Monocytes % 2.4 Eosinophils % 0.0 Basophils % 0.1 Nucleated Red Blood Cells % 0.0 Immature Granulocytes # 0.070 H Neutrophils # 9.2 H Lymphocytes # 0.8 Monocytes # 0.3 Eosinophils # 0.0 Basophils # 0.0 Nucleated Red Blood Cells # 0.0 Prothrombin Time 15.0 H Prothrombin Time Ratio 1.2 INR International Normalized Ratio 1.17 Sodium Level 141 Potassium Level 5.0 Chloride Level 105 Carbon Dioxide Level 29 Anion Gap 7 Blood Urea Nitrogen 22 H Creatinine 0.69 Est Glomerular Filtrat Rate mL/min > 60 Glucose Level 157 Calcium Level 9.7 Phosphorus Level 3.8 Magnesium Level 2.1 Total Bilirubin 0.3 Direct Bilirubin 0.00 Indirect Bilirubin 0.3 Aspartate Amino Transf (AST/SGOT) 25 Alanine Aminotransferase (ALT/SGPT) 36 Alkaline Phosphatase 109 B-Type Natriuretic Peptide 3540 H Total Protein 6.9 Albumin 3.8 Globulin 3.10 Albumin/Globulin Ratio 1.22 Free Thyroxine 1.30 Medications Current Medications IV Flush (NS 3 ml) 3 ml PER PROTOCOL IV ; Start 09/11/18 at 23:30 Ondansetron HCl (Zofran Inj) 4 mg Q6H PRN IV NAUSEA AND/OR VOMITING; Start 09/11/18 at 23:30 Nitroglycerin (Nitroglycerin (Sl Tab) 0.4 Mg) 1 tab Q5M PRN SL CHEST PAIN; Start 09/11/18 at 23:30 Acetaminophen (Tylenol Tab) 650 mg Q6H PRN PO PAIN LEVEL 1-3 OR FEVER Last administered on 09/12/18 17:25; Admin Dose 650 MG; Start 09/11/18 at 23:30 Atorvastatin Calcium (Lipitor) 20 mg HS PO Last administered on 09/12/18 20:34; Admin Dose 20 MG; Start 09/12/18 at 21:00 Fluticasone Propionate (Flonase 0.05% Nasal) 1 spray DAILY NASAL Last administered on 09/13/18 10:44; Admin Dose 1 SPRAY; Start 09/12/18 at 09:00 Metoprolol Tartrate (Lopressor) 25 mg Q12 PO Last administered on 09/13/18 08:25; Admin Dose 25 MG; Start 09/11/18 at 23:30 Levofloxacin/ Dextrose 100 ml @ 100 mls/hr DAILY IVPB Last administered on 09/13/18 08:30; Admin Dose 100 MLS/HR; Start 09/12/18 at 09:00 Albuterol/ Ipratropium (Duoneb) 3 ml Q6HWA RESP THERAPY HHN Last administered on 09/13/18 13:53; Admin Dose 3 ML; Start 09/12/18 at 14:00 Albuterol/ Ipratropium (Duoneb) 3 ml Q2H RESP THERAPY PRN HHN shortness of breath Last administered on 09/13/18 01:30; Admin Dose 3 ML; Start 09/12/18 at 09:30 Budesonide (Pulmicort (Neb)) 0.5 mg BID RESP THERAPY HHN Last administered on 09/13/18 07:48; Admin Dose 0.5 MG; Start 09/12/18 at 09:30 Furosemide (Lasix) 20 mg DAILY IV Last administered on 09/13/18 08:26; Admin Dose 20 MG; Start 09/13/18 at 09:00 Apixaban (Eliquis) 5 mg BID PO Last administered on 1/6/19at 08:24; Admin Dose 5 MG; Start 09/12/18 at 21:00 Diltiazem HCl (Cardizem Iv) 5 mg Q1H PRN IV HEART RATE > 110 Last administered on 09/12/18at 19:11; Admin Dose 5 MG; Start 09/12/18 at 19:00 Prednisone (Prednisone) 30 mg DAILY PO ; Start 09/14/18 at 09:00 Assessment/Plan Chief Complaint/Hosp Course 1. Atrial fibrillation rapid ventricular response: Unclear if this is a new onset or chronic 2. History of CVA 3. Mild hypertension 4. Hypoxemic respiratory failure probably related to above 5. Pulmonary vascular congestion/congestive heart failure acute with acute on chronic probably secondary diastolic heart failure and possible valvular heart disease 6. Dyslipidemia 7. 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 Fall precaution discussed with the patient IV Lasix has been given Electrolyte to be correct as needed metoprolol to be continued/increase as tolerated IV Cardizem will be given as needed basis We will start the patient on p.o. digoxin We will monitor closely on the telemetry Statins to be continued given history of CVA DC planning for tomorrow morning Thank you for his referral will continue to follow along with you EMILY CASTAÑEDA MD [facility] EMILY CASTAÑEDA MD Sep 13, 2018 15:52
[2018-09-13] MEDS: DIGOXIN 0.25 MG TAB PO SCH (16:27)
[2018-09-13] MEDS: ATORVASTATIN 20 MG TAB PO SCH (20:06)
[2018-09-13] MEDS ORDERED: METHYLPREDNISOLONE 40 MG INJ IV SCH (21:00)
[2018-09-14] VITALS (13 sets, daily range): BP systolic 91–120; BP diastolic 63–82; PULSE 64–130; RESP 18
[2018-09-14] MEDS: ALBUTEROL/IPRATROPIUM (NEB) 3 ML AMP HHN SCH ×2 (08:17→13:50)
[2018-09-14] MEDS: BUDESONIDE (NEB) 0.5MG/2ML AMP HHN SCH ×2 (08:25→20:01)
[2018-09-14] MEDS: APIXABAN 5 MG TABLET PO SCH ×2 (08:50→21:08)
[2018-09-14] MEDS: predniSONE 20 MG TAB PO SCH (08:51)
[2018-09-14] MEDS: METOPROLOL 25 MG TAB PO SCH ×2 (08:51→21:09)
[2018-09-14] MEDS: FLUTICASONE 0.05% 16 GM NAS SPRAY NASAL SCH (08:54)
[2018-09-14] MEDS: LEVOFLOXACIN 500MG/D5W (PMX) 100 ML IVPB SCH (08:54)
[2018-09-14] MEDS: FUROSEMIDE 20 MG INJ IV SCH (08:56)
--- NOTE | 2018-09-14 09:31 | PN ---
Date/Time of Note Date/Time of Note DATE: 09/14/18 TIME: 09:31 Assessment/Plan VTE Prophylaxis Risk score (from Ns)>0 risk: 4 SCD applied (from Ns): Yes Pharmacological prophylaxis: apixaban Lines/Catheters IV [facility]from [facility] Urinary Cath still in place: No Assessment/Plan Assessment/Plan 1. Acute hypoxic respiratory failure - Most likely secondary to pulm edema and asthma exacerbation - improving and will wean off supplemental O2 2. Asthma exacerbation- resolving - continue steroid taper - on day 4 of antibiotics - nebs PRN 3. A. fib with RVR - Cardiology on board and recommendations appreciated. Still with tachycardia but may be bronchodilator induced - ECHO noted - Eliquis started per cards and CM consulted to determine cost and affordability for patient 4. Pulmonary edema - Cardiology consulted and recommendations appreciated. Continue on Lasix and will transition to PO 5. 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 Hypertension - Control as needed 7. Disposition - Will transition to PO Lasix. CM consulted for cost of Eliquis - If patient remains stable, will d/c home in next 24-48 hours Result Diagram: 09/14/18 0549 09/14/18 0549 Results 24hrs Laboratory Tests Test 09/14/18 05:49 White Blood Count 9.3 Red Blood Count 4.15 L Hemoglobin 12.3 Hematocrit 37.1 Mean Corpuscular Volume 89.4 Mean Corpuscular Hemoglobin 29.6 Mean Corpuscular Hemoglobin Concent 33.2 Red Cell Distribution Width 14.5 Platelet Count 218 Mean Platelet Volume 10.2 Immature Granulocytes % 0.400 Neutrophils % 79.4 H Lymphocytes % 14.5 L Monocytes % 5.5 Eosinophils % 0.1 Basophils % 0.1 Nucleated Red Blood Cells % 0.0 Immature Granulocytes # 0.040 H Neutrophils # 7.4 Lymphocytes # 1.4 Monocytes # 0.5 Eosinophils # 0.0 Basophils # 0.0 Nucleated Red Blood Cells # 0.0 Sodium Level 142 Potassium Level 4.2 Chloride Level 102 Carbon Dioxide Level 31 Anion Gap 9 Blood Urea Nitrogen 24 H Creatinine 0.58 Est Glomerular Filtrat Rate mL/min > 60 Glucose Level 123 Calcium Level 9.2 Magnesium Level 2.2 Total Bilirubin 0.2 Direct Bilirubin 0.00 Indirect Bilirubin 0.2 Aspartate Amino Transf (AST/SGOT) 18 Alanine Aminotransferase (ALT/SGPT) 31 Alkaline Phosphatase 96 Total Protein 6.5 Albumin 3.6 Globulin 2.90 Albumin/Globulin Ratio 1.24 Subjective 24 Hr Interval Summary Free Text/Dictation Patient states shes feeling better but still with episodes of tachycardia. denies any palpitations or respiratory issues. No acute overnight events. Exam/Review of Systems Vital Signs Vitals Vital Signs Date Temp Pulse Resp B/P (MAP) Pulse Ox O2 O2 Flow FiO2 Time Delivery Rate 09/14/18 64 08:31 09/14/18 20 98 Nasal 3.0 08:28 Cannula 09/14/18 98.0 97/63 (74) 07:25 09/13/18 21 20:17 Intake and Output 09/13/18 09/13/18 09/14/18 1515:00 23:00 07:00 IntakeIntake Total 920 ml 120 ml BalanceBalance 920 ml 120 ml Exam General: Patient is laying in bed and answers questions appropriately Mentation: Patient is alert and oriented 4, Neck: Supple, nontender, midline Respiratory: Diminished. no wheezing or rhonchi. Cardiovascular: S1, S2, tachycardia, no obvious murmurs Gastrointestinal: soft, non-tender to palpation, bowel sounds heard. Neurological: Moves all extremities spontaneously, mild R sided deficits when compared to left (chronic), chronic speech issues Skin: No new skin lesions Medications Medications Current Medications IV Flush (NS 3 ml) 3 ml PER PROTOCOL IV ; Start 09/11/18 at 23:30 Ondansetron HCl (Zofran Inj) 4 mg Q6H PRN IV NAUSEA AND/OR VOMITING; Start 09/11/18 at 23:30 Nitroglycerin (Nitroglycerin (Sl Tab) 0.4 Mg) 1 tab Q5M PRN SL CHEST PAIN; Start 09/11/18 at 23:30 Acetaminophen (Tylenol Tab) 650 mg Q6H PRN PO PAIN LEVEL 1-3 OR FEVER Last administered on 09/12/18at 17:25; Admin Dose 650 MG; Start 09/11/18 at 23:30 Atorvastatin Calcium (Lipitor) 20 mg HS PO Last administered on 09/13/18at 20:06; Admin Dose 20 MG; Start 09/12/18 at 21:00 Fluticasone Propionate (Flonase 0.05% Nasal) 1 spray DAILY NASAL Last administered on 09/14/18 08:54; Admin Dose 1 SPRAY; Start 09/12/18 at 09:00 Metoprolol Tartrate (Lopressor) 25 mg Q12 PO Last administered on 09/13/18 08:25; Admin Dose 25 MG; Start 09/11/18 at 23:30 Levofloxacin/ Dextrose 100 ml @ 100 mls/hr DAILY IVPB Last administered on 09/14/18 08:54; Admin Dose 100 MLS/HR; Start 09/12/18 at 09:00 Albuterol/ Ipratropium (Duoneb) 3 ml Q6HWA RESP THERAPY HHN Last administered on 09/14/18 08:17; Admin Dose 3 ML; Start 09/12/18 at 14:00 Albuterol/ Ipratropium (Duoneb) 3 ml Q2H RESP THERAPY PRN HHN shortness of breath Last administered on 09/13/18 01:30; Admin Dose 3 ML; Start 09/12/18 at 09:30 Budesonide (Pulmicort (Neb)) 0.5 mg BID RESP THERAPY HHN Last administered on 09/14/18 08:25; Admin Dose 0.5 MG; Start 09/12/18 at 09:30 Furosemide (Lasix) 20 mg DAILY IV Last administered on 09/13/18 08:26; Admin Dose 20 MG; Start 09/13/18 at 09:00 Apixaban (Eliquis) 5 mg BID PO Last administered on 09/14/18 08:50; Admin Dose 5 MG; Start 09/12/18 at 21:00 Diltiazem HCl (Cardizem Iv) 5 mg Q1H PRN IV HEART RATE > 110 Last administered on 09/12/18 19:11; Admin Dose 5 MG; Start 09/12/18 at 19:00 Prednisone (Prednisone) 30 mg DAILY PO Last administered on 09/14/18 08:51; Admin Dose 30 MG; Start 09/14/18 at 09:00 Digoxin (Digoxin) 0.25 mg DAILY@1300 PO Last administered on 09/13/18 16:27; Admin Dose 0.25 MG; Start 09/13/18 at 16:00 LAYO POWER MD Sep 14, 2018 09:31
[2018-09-14] MEDS ORDERED: APIX5TAB PO (10:31)
[2018-09-14] MEDS ORDERED: DIGO250T PO (10:35)
[2018-09-14] MEDS: DIGOXIN 0.25 MG TAB PO SCH (12:30)
[2018-09-14] MEDS ORDERED: LEVALBUTEROL (NEB) 0.63 MG/3 ML AMP HHN PRN (15:30)
--- NOTE | 2018-09-14 16:05 | CONS ---
Date/Time of Note Date/Time of Note DATE: 09/14/18 TIME: 16:03 Consult Date/Type/Reason Admit Date/Time Sep 11, 2018 at 23:08 Initial Consult Date 09/12/18 Requesting Provider: JAMES ANGELES Subjective Cardiology follow-up progress note Subjective: Case discussed with staff and telemetry was reviewed. Patient remains in atrial fibrillation. Intermittently with rapid ventricular response d/w Dr Chowdary She denies any chest pain or pressure to me and breathing has significantly improved no palpitation no bleeding no PND orthopnea dw/ son Adjunctive: General: no acute distress HEENT: NC/AT. pupils are equal. round. NECK: NO JVD. no stridor. CV: Irregularly irregular. systolic murmur; no gallop or rubs. PULM: no wheezing or rhonchi. GI: SOFT, NT, ND, no rebound or guarding Extremity: trace B/L LE edema. no clubbing. neuro: awake and alert, OX3. With right-sided weakness Psych: calm and pleasant rectal: deferred EKG was personally reviewed showed atrial fibrillation with ventricular response. Nonspecific ST-T wave abnormalities l Chest x-ray shows: 1. Bilateral perihilar and lower lobe reticulonodular opacifications, suggestive of interstitial pulmonary edema or less likely pneumonia. 2. Mild cardiomegaly with central pulmonary vascular congestion. 3. Small left-sided pleural effusion. 4. Mild atherosclerotic calcification of the thoracic aorta. Echocardiogram was personally reviewed which shows: There is severe enlargement of left atrium this is best appreciated by LA volume index. LA Volume Index=57. Normal left ventricular systolic function. Normal left ventricular cavity size. Normal left ventricular wall thickness. Ejection fraction is visually estimated at 55 %. Tissue Doppler/Mitral Doppler indices are indeterminate in this study due to the presence of mitral stenosis. Mitral valve leaflets appear moderately thickened. Moderate mitral leaflet calcification. Mild to moderate mitral valve regurgitation. The regurgitation jet is eccentrically directed which may underestimate the severity of mitral regurgitation. Moderate to severe mitral stenosis. Mitral valve Max Velocity 2.30 m/sec. MaxPG 22.00 mmHg. MeanPG 12.00 mmHg. Mitral Valve Area by PHT1.04 cm2. 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 No hemodynamically significant aortic stenosis by doppler. Aortic sclerosis without significant stenosis. Aortic cusps appear mildly calcified. Trileaflet aortic valve. Mild aortic valve regurgitation. Normal appearance of the tricuspid valve. Estimated peak PA systolic pressure 41 mmHg. There is mild tricuspid regurgitation. Objective Vital Signs Date Temp Pulse Resp B/P (MAP) Pulse Ox O2 O2 Flow FiO2 Time Delivery Rate 09/14/18 3.0 15:51 09/14/18 98.0 92 18 101/78 98 15:30 (86) 09/14/18 Nasal 14:00 Cannula 09/13/18 21 20:17 Intake and Output 09/13/18 09/13/18 09/14/18 1515:00 23:00 07:00 IntakeIntake Total 920 ml 120 ml BalanceBalance 920 ml 120 ml Results/Medications Result Diagram: 09/14/18 0549 09/14/18 0549 Results 24 hrs Laboratory Tests Test 09/14/18 05:49 White Blood Count 9.3 Red Blood Count 4.15 L Hemoglobin 12.3 Hematocrit 37.1 Mean Corpuscular Volume 89.4 Mean Corpuscular Hemoglobin 29.6 Mean Corpuscular Hemoglobin Concent 33.2 Red Cell Distribution Width 14.5 Platelet Count 218 Mean Platelet Volume 10.2 Immature Granulocytes % 0.400 Neutrophils % 79.4 H Lymphocytes % 14.5 L Monocytes % 5.5 Eosinophils % 0.1 Basophils % 0.1 Nucleated Red Blood Cells % 0.0 Immature Granulocytes # 0.040 H Neutrophils # 7.4 Lymphocytes # 1.4 Monocytes # 0.5 Eosinophils # 0.0 Basophils # 0.0 Nucleated Red Blood Cells # 0.0 Sodium Level 142 Potassium Level 4.2 Chloride Level 102 Carbon Dioxide Level 31 Anion Gap 9 Blood Urea Nitrogen 24 H Creatinine 0.58 Est Glomerular Filtrat Rate mL/min > 60 Glucose Level 123 Calcium Level 9.2 Magnesium Level 2.2 Total Bilirubin 0.2 Direct Bilirubin 0.00 Indirect Bilirubin 0.2 Aspartate Amino Transf (AST/SGOT) 18 Alanine Aminotransferase (ALT/SGPT) 31 Alkaline Phosphatase 96 Total Protein 6.5 Albumin 3.6 Globulin 2.90 Albumin/Globulin Ratio 1.24 Medications Current Medications IV Flush (NS 3 ml) 3 ml PER PROTOCOL IV ; Start 09/11/18 at 23:30 Ondansetron HCl (Zofran Inj) 4 mg Q6H PRN IV NAUSEA AND/OR VOMITING; Start 09/11/18 at 23:30 Nitroglycerin (Nitroglycerin (Sl Tab) 0.4 Mg) 1 tab Q5M PRN SL CHEST PAIN; Start 09/11/18 at 23:30 Acetaminophen (Tylenol Tab) 650 mg Q6H PRN PO PAIN LEVEL 1-3 OR FEVER Last administered on 09/12/18 17:25; Admin Dose 650 MG; Start 09/11/18 at 23:30 Atorvastatin Calcium (Lipitor) 20 mg HS PO Last administered on 09/13/18at 20:06; Admin Dose 20 MG; Start 09/12/18 at 21:00 Fluticasone Propionate (Flonase 0.05% Nasal) 1 spray DAILY NASAL Last administered on 09/14/18 08:54; Admin Dose 1 SPRAY; Start 09/12/18 at 09:00 Metoprolol Tartrate (Lopressor) 25 mg Q12 PO Last administered on 09/13/18 08:25; Admin Dose 25 MG; Start 09/11/18 at 23:30 Budesonide (Pulmicort (Neb)) 0.5 mg BID RESP THERAPY HHN Last administered on 09/14/18 08:25; Admin Dose 0.5 MG; Start 09/12/18 at 09:30 Apixaban (Eliquis) 5 mg BID PO Last administered on 09/14/18 08:50; Admin Dose 5 MG; Start 09/12/18 at 21:00 Diltiazem HCl (Cardizem Iv) 5 mg Q1H PRN IV HEART RATE > 110 Last administered on 09/12/18 19:11; Admin Dose 5 MG; Start 09/12/18 at 19:00 Prednisone (Prednisone) 30 mg DAILY PO Last administered on 09/14/18 08:51; Admin Dose 30 MG; Start 09/14/18 at 09:00 Digoxin (Digoxin) 0.25 mg DAILY@1300 PO Last administered on 09/14/18 12:30; Admin Dose 0.25 MG; Start 09/13/18 at 16:00 Furosemide (Lasix) 40 mg DAILY PO ; Start 09/15/18 at 09:00 Levalbuterol (Xopenex Neb) 0.63 mg Q2H RESP THERAPY PRN HHN shortness of breath; Start 09/14/18 at 15:30 Levofloxacin (Levaquin) 500 mg DAILY@06 PO ; Start 09/15/18 at 06:00 Assessment/Plan Chief Complaint/Hosp Course 1. Atrial fibrillation rapid ventricular response: Unclear if this is a new onset or chronic 2. History of CVA 3. Mild hypertension 4. Hypoxemic respiratory failure probably related to above 5. Pulmonary vascular congestion/congestive heart failure acute with acute on chronic probably secondary diastolic heart failure and possible valvular heart disease 6. Dyslipidemia 7. 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 Fall precaution discussed with the patient will dc lasix for now Electrolyte to be correct as needed metoprolol to be continued/increase as tolerated IV Cardizem will be given as needed basis We will start the patient on p.o. digoxin We will monitor closely on the telemetry Statins to be continued given history of CVA DC planning is in process pt has been scheduled to follow-up with me in the office on September 25, 2018 at 9 AM Thank you for his referral will continue to follow along with you EMILY CASTAÑEDA MD [facility] EMILY CASTAÑEDA MD Sep 14, 2018 16:04
[2018-09-14] MEDS: ATORVASTATIN 20 MG TAB PO SCH (21:08)
[2018-09-15] VITALS (8 sets, daily range): BP systolic 94–108; BP diastolic 62–74; PULSE 52–86; RESP 16–18
[2018-09-15] MEDS ORDERED: LEVOFLOXACIN 500 MG TAB PO SCH (06:00)
[2018-09-15] MEDS: BUDESONIDE (NEB) 0.5MG/2ML AMP HHN SCH (08:27)
--- NOTE | 2018-09-15 08:47 | PN ---
Date/Time of Note Date/Time of Note DATE: 09/15/18 TIME: 08:47 Assessment/Plan VTE Prophylaxis Risk score (from Ns)>0 risk: 1 SCD applied (from Ns): Yes Pharmacological prophylaxis: apixaban Lines/Catheters IV Catheter Type (from Nrs): Saline Lock Urinary Cath still in place: No Assessment/Plan Assessment/Plan 1. Acute hypoxic respiratory failure- resolved - Most likely secondary to pulm edema - improving and will wean off supplemental O2 2. Asthma exacerbation- resolved - continue steroid taper as outpatient - on day 5 of antibiotics - nebs PRN 3. A. fib with RVR- resolving - Cardiology on board and recommendations appreciated. Continue on BB and digoxin. On Eliquis and discussed need for compliance and fall precautions - ECHO noted 4. Pulmonary edema - Cardiology consulted and recommendations appreciated. Lasix d/c and discussed need to restrict salt intake 5. 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 Hypertension - Control as needed 7. Disposition - Cleared by cardiology for discharge - Medically stable for discharge home Result Diagram: 09/15/18 0720 09/15/18 0720 Results 24hrs Laboratory Tests Test 09/15/18 07:20 White Blood Count 9.1 Red Blood Count 4.20 Hemoglobin 12.3 Hematocrit 38.5 Mean Corpuscular Volume 91.7 Mean Corpuscular Hemoglobin 29.3 Mean Corpuscular Hemoglobin Concent 31.9 L Red Cell Distribution Width 14.6 H Platelet Count 206 Mean Platelet Volume 10.1 Immature Granulocytes % 0.400 Neutrophils % 70.0 Lymphocytes % 23.1 Monocytes % 5.3 Eosinophils % 0.9 Basophils % 0.3 Nucleated Red Blood Cells % 0.0 Immature Granulocytes # 0.040 H Neutrophils # 6.4 Lymphocytes # 2.1 Monocytes # 0.5 Eosinophils # 0.1 Basophils # 0.0 Nucleated Red Blood Cells # 0.0 Sodium Level 139 Potassium Level 4.1 Chloride Level 103 Carbon Dioxide Level 32 H Anion Gap 4 L Blood Urea Nitrogen 22 H Creatinine 0.61 Est Glomerular Filtrat Rate mL/min > 60 Glucose Level 127 Calcium Level 9.0 Magnesium Level 2.0 Total Bilirubin 0.2 Direct Bilirubin 0.00 Indirect Bilirubin 0.2 Aspartate Amino Transf (AST/SGOT) 21 Alanine Aminotransferase (ALT/SGPT) 28 Alkaline Phosphatase 89 B-Type Natriuretic Peptide 3770 H Total Protein 6.2 Albumin 3.4 Globulin 2.80 Albumin/Globulin Ratio 1.21 Digoxin Level 1.1 Subjective 24 Hr Interval Summary Free Text/Dictation Patient states shes feeling better. Family at bedside. No acute overnight events. No new complaints. Exam/Review of Systems Vital Signs Vitals Vital Signs Date Temp Pulse Resp B/P (MAP) Pulse Ox O2 O2 Flow FiO2 Time Delivery Rate 09/15/18 78 08:27 09/15/18 2.0 08:27 09/15/18 16 97 Nasal 08:27 Cannula 09/15/18 98.4 107/74 07:52 (85) 09/14/18 21 20:01 Intake and Output 09/14/18 09/14/18 09/15/18 1515:00 23:00 07:00 IntakeIntake Total 1200 ml BalanceBalance 1200 ml Exam General: Patient is laying in bed and answers questions appropriately Mentation: Patient is alert and oriented 4, Neck: Supple Respiratory: Clear bilaterally. no wheezing or rhonchi. Cardiovascular: S1, S2, regular rate, irregular rhythm, no obvious murmurs Gastrointestinal: soft, non-tender to palpation, bowel sounds heard. Neurological: Moves all extremities spontaneously, mild R sided deficits when compared to left (chronic), chronic speech issues Skin: No new skin lesions Medications Medications Current Medications IV Flush (NS 3 ml) 3 ml PER PROTOCOL IV ; Start 09/11/18 at 23:30 Ondansetron HCl (Zofran Inj) 4 mg Q6H PRN IV NAUSEA AND/OR VOMITING; Start 09/11/18 at 23:30 Nitroglycerin (Nitroglycerin (Sl Tab) 0.4 Mg) 1 tab Q5M PRN SL CHEST PAIN; Start 09/11/18 at 23:30 Acetaminophen (Tylenol Tab) 650 mg Q6H PRN PO PAIN LEVEL 1-3 OR FEVER Last administered on 09/12/18at 17:25; Admin Dose 650 MG; Start 09/11/18 at 23:30 Atorvastatin Calcium (Lipitor) 20 mg HS PO Last administered on 09/14/18at 21:08; Admin Dose 20 MG; Start 09/12/18 at 21:00 Fluticasone Propionate (Flonase 0.05% Nasal) 1 spray DAILY NASAL Last administered on 09/14/18at 08:54; Admin Dose 1 SPRAY; Start 09/12/18 at 09:00 Metoprolol Tartrate (Lopressor) 25 mg Q12 PO Last administered on 09/14/18 21:09; Admin Dose 25 MG; Start 09/11/18 at 23:30 Budesonide (Pulmicort (Neb)) 0.5 mg BID RESP THERAPY HHN Last administered on 09/15/18 08:27; Admin Dose 0.5 MG; Start 09/12/18 at 09:30 Apixaban (Eliquis) 5 mg BID PO Last administered on 09/14/18 21:08; Admin Dose 5 MG; Start 09/12/18 at 21:00 Diltiazem HCl (Cardizem Iv) 5 mg Q1H PRN IV HEART RATE > 110 Last administered on 09/12/18 19:11; Admin Dose 5 MG; Start 09/12/18 at 19:00 Prednisone (Prednisone) 30 mg DAILY PO Last administered on 09/14/18 08:51; Admin Dose 30 MG; Start 09/14/18 at 09:00 Digoxin (Digoxin) 0.25 mg DAILY@1300 PO Last administered on 09/14/18 12:30; Admin Dose 0.25 MG; Start 09/13/18 at 16:00 Levalbuterol (Xopenex Neb) 0.63 mg Q2H RESP THERAPY PRN HHN shortness of breath; Start 09/14/18 at 15:30 Levofloxacin (Levaquin) 500 mg DAILY@06 PO Last administered on 09/15/18 05:43; Admin Dose 500 MG; Start 09/15/18 at 06:00 LAYO POWER MD Sep 15, 2018 08:47
[2018-09-15] MEDS: METOPROLOL 25 MG TAB PO SCH (09:00)
[2018-09-15] MEDS ORDERED: FUROSEMIDE 40 MG TAB PO SCH (09:00)
[2018-09-15] MEDS: FLUTICASONE 0.05% 16 GM NAS SPRAY NASAL SCH (09:03)
[2018-09-15] MEDS: predniSONE 20 MG TAB PO SCH (09:05)
[2018-09-15] MEDS: APIXABAN 5 MG TABLET PO SCH (09:05)
[2018-09-15] MEDS ORDERED: ALBU8.5H8 INH (12:23)
[2018-09-15] MEDS ORDERED: METO-448 PO (12:23)
[2018-09-15] MEDS ORDERED: ATOR40TA68 PO (12:23)
[2018-09-15] MEDS ORDERED: PRED10TA PO (12:23)
[2018-09-15] MEDS: DIGOXIN 0.25 MG TAB PO SCH (12:27)
--- NOTE | 2018-09-15 12:28 | PDOCDIS ---
Discharge Instructions DIAGNOSIS Discharge Diagnosis 1. Acute hypoxic respiratory failure- resolved 2. Asthma exacerbation- resolved 3. A. fib with RVR- improved 4. Pulmonary edema- resolved 5. History of CVA in 2014 with residual dysarthria and right-sided weakness 6. Hypertension CONDITION [id number] Patient Condition: [id number] Guarded HOME CARE INSTRUCTIONS: [id number] Diet Instructions: [id number] Low Fat /Cholesterol [id number] Special Diet: [id number] LOW CHOLESTEROL DIET FOLLOW UP/APPOINTMENTS Follow-up Plan 1. Follow up with your primary care physician in 1 week 2. Follow up with Dr. Alves on September 25 at 9 am 3. Continue taking all mediations as prescribed. While on Eliquis, be careful to avoid falls and if you do fall and hit your head or have nonstop bleeding, please go to your closest ER 4. You will need to limit your salt intake to 2 grams daily and avoid more than 1200 cc/ml of fluids 5. If symptoms worsen, please return to the closest emergency department REFERRALS Other Referrals Nicholas Alves MD Specialty: Cardiology Comments Office Address [id number] [facility] [address] [place] [id number] Office LAYO POWER MD Sep 15, 2018 12:28
--- NOTE | 2018-09-15 16:44 | DS ---
Date/Time of Note Date/Time of Note DATE: 09/15/18 TIME: 16:38 Discharge Summary Admission/Discharge Info Admit Date/Time Sep 11, 2018 at 23:08 Discharge Date/Time Sep 15, 2018 at 14:46 Discharge Diagnosis 1. Acute hypoxic respiratory failure- resolved 2. Asthma exacerbation- resolved 3. A. fib with RVR- improved 4. Pulmonary edema- resolved 5. 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 Hypertension Patient Condition: Stable Consults Cardiology- Dr. Alves Procedures PROCEDURE: XR Chest. CLINICAL INDICATION: Chest pain. TECHNIQUE: AP portable views of the chest were obtained. COMPARISON: 09/30/2013 FINDINGS: There is mild cardiomegaly. There is mild atherosclerotic calcification of the thoracic aorta. There is mild prominence of the central pulmonary vasculature. There is diffuse reticular nodular opacification involving the bilateral perihilar and lower lobe regions. The peripheral vascular markings are indistinct . There is a small left-sided pleural effusion. No signs of pneumothorax are seen. IMPRESSION: 1. Bilateral perihilar and lower lobe reticulonodular opacifications, suggestive of interstitial pulmonary edema or less likely pneumonia. 2. Mild cardiomegaly with central pulmonary vascular congestion. 3. Small left-sided pleural effusion. 4. Mild atherosclerotic calcification of the thoracic aorta. RPTAT: HGAS .Scott Santos MD, MD Date Time Electronically viewed and signed by .Scott Santos MD, MD on 09/11/2018 22:34 Hx of Present Illness This is a 58-year-old female with a history of hypertension, asthma, CVA 2013 with residual dysarthria and right lower extremity weakness who presented to ER complaining of shortness of breath and intermittent palpitations. Denies chest pain. In the ER she was found to be in A-fib with RVR, heart rate in the low 100s. She was given Cardizem 10 mg IV x2 and then was started on Cardizem drip. First troponin negative. Chest x-ray shows the followin. Bilateral perihilar and lower lobe reticulonodular opacifications, suggestive of interstitial pulmonary edema or less likely pneumonia. 2. Mild cardiomegaly with central pulmonary vascular congestion. 3. Small left-sided pleural effusion. 4. Mild atherosclerotic calcification of the thoracic aorta. Hospital Course Patient was admitted to Telemetry for treatment of afib with RVR and shortness of breath. Cardiology was consulted and started patient on Eliquis as well as rate control medication. She was treated with IV antibiotics, steroids, and bronchodilators. Over the course of hospitalization, her respiratory status improved and was rate controlled. On day of discharge, vitals and physical exam were stable and she was discharged home in stable condition. She was instructed to follow up with Cardiology on Sep 25 at 9am. Home Meds Active Scripts Albuterol Sulfate* (Proair HFA*) 8.5 Gm Hfa.aer.ad, 2 PUFF INH Q4H PRN for WHEEZING AND SOB, #1 INHALER Prov:LAYO POWER MD 09/15/18 Prednisone* (Prednisone*) 10 Mg Tab, 10 MG PO DAILY for 4 Days, #6 TAB Take 20mg for 2 days then 10mg for 2 days then stop Prov:LAYO POWER MD 09/15/18 Metoprolol Tartrate* (Lopressor*) 25 Mg Tab, 25 MG PO Q12 for 30 Days, #60 TAB 6 Refills Prov:LAYO POWER MD 09/15/18 Atorvastatin* (Atorvastatin*) 40 Mg Tablet, 1 TAB PO DAILY for 30 Days, #30 TAB 6 Refills Prov:LAYO POWER MD 09/15/18 Digoxin* (Digitek*) 250 Mcg Tablet, 0.25 MG PO DAILY@1300 for 30 Days, #30 TAB 6 Refills Prov:LAYO POWER MD 09/14/18 Apixaban* (Eliquis*) 5 Mg Tablet, 5 MG PO BID for 30 Days, #60 TAB 6 Refills Prov:LAYO POWER MD 09/14/18 Reported Medications Fluticasone Propionate (Flonase (16 gm)) 1 [place], 1 DAILY 09/30/13 Aspirin (Aspirin) 81 Mg Chew, 1 DAILY 09/30/13 Hydrocodone Bit-Acetaminophen* ([place]*) 1 Tab Tab, 1 09/30/13 Follow-up Plan 1. Follow up with your primary care physician in 1 week 2. Follow up with Dr. Alves on September 25 at 9 am 3. Continue taking all mediations as prescribed. While on Eliquis, be careful to avoid falls and if you do fall and hit your head or have nonstop bleeding, please go to your closest ER 4. You will need to limit your salt intake to 2 grams daily and avoid more than 1200 cc/ml of fluids 5. If symptoms worsen, please return to the closest emergency department Primary Care Provider [facility] Time spent on discharge: > 30 minutes Pending Labs Laboratory Tests Test 09/15/18 07:20 White Blood Count 9.1 10^3/ul (4.8-10.8) Red Blood Count 4.20 10^6/ul (4.20-5.40) Hemoglobin 12.3 g/dl (12.0-16.0) Hematocrit 38.5 % (37.0-47.0) Mean Corpuscular Volume 91.7 fl (82.0-101.0) Mean Corpuscular Hemoglobin 29.3 pg (29.0-33.0) Mean Corpuscular Hemoglobin Concent 31.9 g/dl (32.0-37.0) Red Cell Distribution Width 14.6 % (11.5-14.5) Platelet Count 206 10^3/UL (140-415) Mean Platelet Volume 10.1 fl (7.4-10.4) Immature Granulocytes % 0.400 % (0.001-0.429) Neutrophils % 70.0 % (39.0-77.0) Lymphocytes % 23.1 % (15.0-51.0) Monocytes % 5.3 % (0.0-11.0) Eosinophils % 0.9 % (0.0-7.0) Basophils % 0.3 % (0.0-2.0) Nucleated Red Blood Cells % 0.0 /100WBC (0.0-0.0) Immature Granulocytes # 0.040 10^3/ul (0.0-0.031) Neutrophils # 6.4 10^3/ul (1.6-7.5) Lymphocytes # 2.1 10^3/ul (0.8-2.9) Monocytes # 0.5 10^3/ul (0.3-0.9) Eosinophils # 0.1 10^3/ul (0.0-0.5) Basophils # 0.0 10^3/ul (0.0-0.1) Nucleated Red Blood Cells # 0.0 10^3/ul (0.0-0.0) Sodium Level 139 mmol/L (135-144) Potassium Level 4.1 mmol/L (3.5-5.1) Chloride Level 103 mmol/L (97-110) Carbon Dioxide Level 32 mmol/L (21-31) Anion Gap 4 (5-13) Blood Urea Nitrogen 22 mg/dl (7-20) Creatinine 0.61 mg/dl (0.44-1.00) Est Glomerular Filtrat Rate mL/min > 60 mL/min (>60) Glucose Level 127 mg/dl (70-220) Calcium Level 9.0 mg/dl (8.4-10.2) Magnesium Level 2.0 mg/dl (1.7-2.5) Total Bilirubin 0.2 mg/dl (0.2-1.3) Direct Bilirubin 0.00 mg/dl (0.00-0.20) Indirect Bilirubin 0.2 mg/dl (0-1.1) Aspartate Amino Transf (AST/SGOT) 21 IU/L (15-46) Alanine Aminotransferase (ALT/SGPT) 28 IU/L (13-69) Alkaline Phosphatase 89 IU/L (42-121) B-Type Natriuretic Peptide 3770 PG/ML (0-125) Total Protein 6.2 g/dl (6.1-8.1) Albumin 3.4 g/dl (3.3-4.9) Globulin 2.80 g/dl (1.3-3.2) Albumin/Globulin Ratio 1.21 Digoxin Level 1.1 ng/ml (1.0-2.0) LAYO POWER MD Sep 15, 2018 16:44
== END 2018-09-15 14:46 | disposition home or self-care (01) | DRG 189 ==
LOC: E/R 21:12 → TEL 23:08
PROVIDERS: ADMIT Internal Medicine; ATTEND Internal Medicine
DX: J96.01 Acute respiratory failure with hypoxia (principal); I50.33 Acute on chronic diastolic (congestive) heart failure; J45.901 Unspecified asthma with (acute) exacerbation; I69.959 Hemiplegia and hemiparesis following unspecified cerebrovascular disease affecting unspecified side; I49.8 Other specified cardiac arrhythmias; I48.91 Unspecified atrial fibrillation; I69.922 Dysarthria following unspecified cerebrovascular disease; I11.0 Hypertensive heart disease with heart failure; E78.5 Hyperlipidemia, unspecified; I05.2 Rheumatic mitral stenosis with insufficiency
CPT/HCPCS: 36415; 71045; 80048; 80053; 80061; 80162; 82550; 82553; 83036; 83605; 83735; 83880; 84100; 84145; 84439; 84443; 84484; 85025; 85610; 87040; 90686; 93005; 93306; 94640; 94664; 96374; 96375; J0456; J0696; J1650; J1940; J1956; J2930; J7030; J7512

== ENCOUNTER 2019-06-27 16:20 | Inpatient (IN) | payer MEDICARE, OTHER ==
[~2019-06-27] VITALS: Ht 157.5 cm; Wt 65.7 kg
[~2019-06-27 16:20] MED LIST changes: +ACYC800T5 PO; +ALBU8.5H8 INH; +APIX5TAB PO; -ATOR40TA68; +ATOR40TA68 PO; +DIGO250T PO; +DOCU-159 PO; +HYDR-4011 PO; +LACT1CAP28 PO; +MES250 PO; +METO-429 PO; +METO-448 PO; +NAPR-985 PO; +PANT40TA4 PO; +PRED10TA PO; +PRED20TA PO; +SERT50TA6 PO
[2019-06-27] MEDS ORDERED: ONDANSETRON 4 MG INJ IV STA ×2 (17:31→20:29)
[2019-06-27] MEDS ORDERED: SOD CHLORIDE 0.9% 500 ML IV STA (17:31)
[2019-06-27] MEDS ORDERED: DIGOXIN 0.125 MG TAB PO ONE (18:00)
[2019-06-27] MEDS ORDERED: DILTIAZEM 25 MG INJ IV ONE (18:00)
[2019-06-27] MEDS ORDERED: IOHEXOL 300MG/ML 150 ML BTL ONE (18:39)
[2019-06-27] MEDS ORDERED: SOD CHLORIDE 0.9% 100 ML ONE (18:39)
[2019-06-27] MEDS ORDERED: CEFTRIAXONE 1 GM/50 ML (PMX) 50 ML IVPB ONE (20:00)
[2019-06-27] MEDS ORDERED: metroNIDAZOLE 500 MG/NS (PMX) 100 ML IVPB ONE (20:00)
[2019-06-27] MEDS ORDERED: morphine 4 MG/ML VIAL IV STA (20:29)
[2019-06-27] MEDS ORDERED: ONDANSETRON 4 MG INJ IV PRN (20:30)
[2019-06-27] MEDS ORDERED: ACETAMINOPHEN 325 MG TAB PO PRN (20:30)
[2019-06-27] MEDS ORDERED: IPRATROPIUM (NEB) 0.5 MG/2.5 ML AMP NEB PRN (21:00)
[2019-06-27] MEDS ORDERED: ALBUTEROL 0.083% (NEB) 2.5 MG/3 ML AMP NEB PRN (21:00)
[2019-06-27] MEDS: SOD CHLORIDE 0.9% 1,000 ML IV SCH (21:40)
[2019-06-28] VITALS (47 sets, daily range): BP systolic 103–145; BP diastolic 79–118; PULSE 91–139; RESP 16–22; Ht 157.5 cm; Wt 65.7 kg
[2019-06-28] MEDS ORDERED: PIPER-TAZO 3.375 GM IV (PMX) 100 ML IVPB SCH ×2
[2019-06-28] MEDS: morphine 2 MG INJ IV PRN ×2 (00:54→15:15)
[2019-06-28] MEDS: METOPROLOL 5 MG INJ IV SCH ×4 (02:22→18:18)
[2019-06-28] MEDS: PANTOPRAZOLE 40 MG INJ IV SCH (05:56)
[2019-06-28] MEDS ORDERED: ACYCLOVIR 500 MG in SOD CHLORIDE 0.9% 100 ML IVPB SCH (08:00)
[2019-06-28] MEDS ORDERED: FLU VACC QS 2019-20 (6MOS UP) 0.5 ML SYG IM* ONE (09:00)
[2019-06-28] MEDS: SOD CHLORIDE 0.9% 1,000 ML IV SCH ×2 (09:31→21:59)
[2019-06-28] MEDS ORDERED: IOHEXOL 300MG/ML 150 ML BTL ONE (09:58)
[2019-06-28] MEDS ORDERED: SOD CHLORIDE 0.9% 100 ML ONE (09:58)
[2019-06-28] MEDS ORDERED: FENTAnyl 50 MCG/ML VIAL ONE (10:10)
[2019-06-28] MEDS ORDERED: MIDAZOLAM 1 MG/ML 2 ML INJ ONE (10:10)
[2019-06-28] MEDS ORDERED: LIDOCAINE 1% (MDV) 20 ML INJ ONE (10:32)
[2019-06-28] MEDS: ACYCLOVIR 500 MG in SOD CHLORIDE 0.9% 100 ML IVPB SCH ×2 (11:31→20:11)
[2019-06-28] MEDS: DIGOXIN 500 MCG INJ IV SCH (13:38)
[2019-06-28] MEDS ORDERED: niCARdipine-NS 0.1MG/ML DRIP 200 ML IV SCH (17:00)
[2019-06-28] MEDS ORDERED: NICARDIPINE ONE (17:22)
[2019-06-28] MEDS ORDERED: SODIUM CHLORIDE ONE (17:22)
[2019-06-28] MEDS: DILTIAZEM-D5W 125MG/125ML DRIP 125 ML IV SCH (18:14)
[2019-06-29] VITALS (72 sets, daily range): BP systolic 92–137; BP diastolic 69–117; PULSE 84–138; RESP 15–31
[2019-06-29] MEDS: METOPROLOL 5 MG INJ IV SCH ×4 (00:12→18:09)
[2019-06-29] MEDS: MEROPENEM 1 GM/50ML(PMX) 50 ML IVPB SCH ×4 (00:12→22:40)
[2019-06-29] MEDS: SOD CHLORIDE 0.9% 1,000 ML IV SCH ×2 (00:14→13:51)
[2019-06-29] MEDS: ACYCLOVIR 500 MG in SOD CHLORIDE 0.9% 100 ML IVPB SCH ×3 (04:06→19:50)
[2019-06-29] MEDS: PANTOPRAZOLE 40 MG INJ IV SCH (05:30)
[2019-06-29] MEDS: DILTIAZEM-D5W 125MG/125ML DRIP 125 ML IV SCH (17:10)
[2019-06-30] VITALS (96 sets, daily range): BP systolic 106–158; BP diastolic 69–131; PULSE 74–138; RESP 15–30
[2019-06-30] MEDS: METOPROLOL 5 MG INJ IV SCH ×5 (00:01→23:01)
[2019-06-30] MEDS: ACYCLOVIR 500 MG in SOD CHLORIDE 0.9% 100 ML IVPB SCH ×3 (03:06→20:07)
[2019-06-30] MEDS: SOD CHLORIDE 0.9% 1,000 ML IV SCH ×2 (03:34→18:01)
[2019-06-30] MEDS: PANTOPRAZOLE 40 MG INJ IV SCH (05:29)
[2019-06-30] MEDS: MEROPENEM 1 GM/50ML(PMX) 50 ML IVPB SCH ×3 (05:29→22:26)
[2019-06-30] MEDS: DILTIAZEM-D5W 125MG/125ML DRIP 125 ML IV SCH ×2 (12:05→22:59)
[2019-07-01] VITALS (53 sets, daily range): BP systolic 118–147; BP diastolic 78–115; PULSE 78–115; RESP 17–33
[2019-07-01] MEDS: SOD CHLORIDE 0.9% 1,000 ML IV SCH ×3 (00:29→17:57)
[2019-07-01] MEDS: ACYCLOVIR 500 MG in SOD CHLORIDE 0.9% 100 ML IVPB SCH (04:09)
[2019-07-01] MEDS: METOPROLOL 5 MG INJ IV SCH ×4 (05:09→23:02)
[2019-07-01] MEDS: MEROPENEM 1 GM/50ML(PMX) 50 ML IVPB SCH ×3 (05:09→21:22)
[2019-07-01] MEDS: PANTOPRAZOLE 40 MG INJ IV SCH (05:09)
[2019-07-01] MEDS ORDERED: IOHEXOL 14.3 MG(I)/ML (ADULT) BTL PO ONE (08:00)
[2019-07-01] MEDS ORDERED: SOD CHLORIDE 0.9% 100 ML ONE (11:53)
[2019-07-01] MEDS ORDERED: IOHEXOL 300MG/ML 150 ML BTL ONE (11:53)
[2019-07-01] MEDS: DIGOXIN 500 MCG INJ IV SCH (13:12)
[2019-07-01] MEDS: DILTIAZEM-D5W 125MG/125ML DRIP 125 ML IV SCH (21:29)
[2019-07-01] MEDS: morphine 2 MG INJ IV PRN (22:58)
[2019-07-02] VITALS (33 sets, daily range): BP systolic 84–149; BP diastolic 64–109; PULSE 76–119; RESP 13–22
[2019-07-02] MEDS: SOD CHLORIDE 0.9% 1,000 ML IV SCH ×2 (04:53→19:12)
[2019-07-02] MEDS: MEROPENEM 1 GM/50ML(PMX) 50 ML IVPB SCH ×3 (05:00→21:06)
[2019-07-02] MEDS: PANTOPRAZOLE 40 MG INJ IV SCH (05:00)
[2019-07-02] MEDS: METOPROLOL 5 MG INJ IV SCH ×4 (05:00→23:04)
[2019-07-02] MEDS: DIGOXIN 500 MCG INJ IV SCH (13:41)
[2019-07-02] MEDS ORDERED: POTASSIUM CHLORIDE 100 ML IVPB SCH (14:30)
[2019-07-02] MEDS: POTASSIUM CHLORIDE (SR) 20 MEQ TAB PO SCH ×2 (17:29→21:06)
[2019-07-02] MEDS: morphine 2 MG INJ IV PRN (21:24)
[2019-07-03] VITALS (24 sets, daily range): BP systolic 110–155; BP diastolic 67–140; PULSE 74–120; RESP 12–35
[2019-07-03] MEDS: morphine 2 MG INJ IV PRN (02:28)
[2019-07-03] MEDS: DILTIAZEM-D5W 125MG/125ML DRIP 125 ML IV SCH (04:44)
[2019-07-03] MEDS ORDERED: DILTIAZEM 25 MG INJ IV ONE (05:00)
[2019-07-03] MEDS: SOD CHLORIDE 0.9% 1,000 ML IV SCH ×2 (05:22→14:48)
[2019-07-03] MEDS: METOPROLOL 5 MG INJ IV SCH ×3 (06:03→18:27)
[2019-07-03] MEDS: PANTOPRAZOLE 40 MG INJ IV SCH ×2 (06:03→06:07)
[2019-07-03] MEDS: MEROPENEM 1 GM/50ML(PMX) 50 ML IVPB SCH ×3 (06:07→21:07)
[2019-07-03] MEDS: DIGOXIN 500 MCG INJ IV SCH (13:24)
[2019-07-03] MEDS: METOPROLOL 25 MG TAB PO SCH (21:06)
[2019-07-04] VITALS (17 sets, daily range): BP systolic 115–151; BP diastolic 66–107; PULSE 75–118; RESP 14–23
[2019-07-04] MEDS: PANTOPRAZOLE 40 MG INJ IV SCH (06:07)
[2019-07-04] MEDS: MEROPENEM 1 GM/50ML(PMX) 50 ML IVPB SCH ×3 (06:07→21:15)
[2019-07-04] MEDS: METOPROLOL 25 MG TAB PO SCH (08:11)
[2019-07-04] MEDS ORDERED: METOPROLOL 25 MG TAB PO ONE (09:30)
[2019-07-04] MEDS: DIGOXIN 500 MCG INJ IV SCH (13:01)
[2019-07-04] MEDS: APIXABAN 5 MG TABLET PO SCH (21:15)
[2019-07-04] MEDS: METOPROLOL 50 MG TAB PO SCH (21:15)
[2019-07-05 04:00] VITALS: BP 135/77; PULSE 93; RESP 20
[2019-07-05] MEDS: MEROPENEM 1 GM/50ML(PMX) 50 ML IVPB SCH ×3 (06:29→23:03)
[2019-07-05] MEDS: PANTOPRAZOLE (EC) 40 MG TAB PO SCH (06:29)
[2019-07-05 07:56] VITALS: BP 126/78; PULSE 87; RESP 16
[2019-07-05] MEDS ORDERED: FLU VACCINE XX SCH ×2 (08:00→14:30)
[2019-07-05] MEDS: METOPROLOL 50 MG TAB PO SCH ×2 (09:10→20:22)
[2019-07-05] MEDS: APIXABAN 5 MG TABLET PO SCH ×2 (09:10→20:22)
[2019-07-05 11:22] VITALS: BP 120/69; PULSE 77; RESP 16
[2019-07-05] MEDS ORDERED: FLU VACC QS 2019-20 (6MOS UP) 0.5 ML SYG IM* ONE ×2 (12:00→14:30)
[2019-07-05] MEDS: DIGOXIN 500 MCG INJ IV SCH (13:35)
[2019-07-05] MEDS ORDERED: IOHEXOL 14.3 MG(I)/ML (ADULT) BTL PO ONE (14:00)
[2019-07-05 15:20] VITALS: BP 135/81; PULSE 77; RESP 20
[2019-07-05] MEDS: morphine 2 MG INJ IV PRN (19:00)
[2019-07-05 20:00] VITALS: BP 115/77; PULSE 73; RESP 20
[2019-07-05] MEDS: LACTOBACILLUS RHAMNOSUS CAP PO SCH (20:22)
[2019-07-06] VITALS: BP 110/78; PULSE 68; RESP 20
[2019-07-06 04:00] VITALS: BP 118/77; PULSE 66; RESP 19
[2019-07-06] MEDS: MEROPENEM 1 GM/50ML(PMX) 50 ML IVPB SCH ×3 (06:20→21:22)
[2019-07-06] MEDS: PANTOPRAZOLE (EC) 40 MG TAB PO SCH (06:21)
[2019-07-06 07:35] VITALS: BP 134/94; PULSE 100; RESP 20
[2019-07-06] MEDS: DOCUSATE SODIUM 100 MG CAP PO SCH (09:00)
[2019-07-06] MEDS: APIXABAN 5 MG TABLET PO SCH (09:00)
[2019-07-06] MEDS: LACTOBACILLUS RHAMNOSUS CAP PO SCH ×3 (09:00→21:22)
[2019-07-06] MEDS: METOPROLOL 50 MG TAB PO SCH ×3 (09:00→21:23)
[2019-07-06] MEDS ORDERED: BARIUM SULFATE 0.1% 450 ML BTL (VOLUMEN) PO ONE (10:54)
[2019-07-06 11:50] VITALS: BP 133/81; PULSE 80; RESP 20
[2019-07-06] MEDS: ENOXAPARIN 100 MG/ML SYG SC SCH ×3 (12:30→21:25)
[2019-07-06] MEDS ORDERED: IOHEXOL 100 ML ONE (12:50)
[2019-07-06] MEDS ORDERED: SOD CHLORIDE 0.9% 100 ML ONE (12:50)
[2019-07-06] MEDS: DIGOXIN 500 MCG INJ IV SCH ×2 (13:00→14:42)
[2019-07-06] MEDS ORDERED: GLUCAGON 1 MG INJ ONE (13:24)
[2019-07-06] MEDS ORDERED: GLUCAGON 1 MG INJ IV STA (13:28)
[2019-07-06 15:18] VITALS: BP 117/80; PULSE 103; RESP 20
[2019-07-06 19:30] VITALS: BP 124/81; PULSE 93; RESP 20
[2019-07-07] VITALS (7 sets, daily range): BP systolic 100–153; BP diastolic 67–81; PULSE 67–112; RESP 19–20
[2019-07-07] MEDS: PANTOPRAZOLE (EC) 40 MG TAB PO SCH (06:10)
[2019-07-07] MEDS: MEROPENEM 1 GM/50ML(PMX) 50 ML IVPB SCH ×3 (06:11→21:33)
[2019-07-07] MEDS: DOCUSATE SODIUM 100 MG CAP PO SCH (09:09)
[2019-07-07] MEDS: LACTOBACILLUS RHAMNOSUS CAP PO SCH ×2 (09:10→21:31)
[2019-07-07] MEDS: METOPROLOL 50 MG TAB PO SCH ×2 (09:11→21:32)
[2019-07-07] MEDS: ENOXAPARIN 100 MG/ML SYG SC SCH ×2 (09:23→21:36)
[2019-07-07] MEDS: morphine 2 MG INJ IV PRN (12:48)
[2019-07-07] MEDS ORDERED: CLONIDINE 0.1 MG/24 HR PATCH TRANSDERM SCH (15:30)
[2019-07-07] MEDS: SERTRALINE 50 MG TAB PO SCH (16:30)
[2019-07-07] MEDS: MESALAMINE (SR) 250 MG CAP PO SCH ×2 (17:15→21:32)
[2019-07-08] VITALS (7 sets, daily range): BP systolic 95–118; BP diastolic 55–75; PULSE 76–107; RESP 19–22
[2019-07-08] MEDS: morphine 2 MG INJ IV PRN ×2 (05:19→20:26)
[2019-07-08] MEDS: MEROPENEM 1 GM/50ML(PMX) 50 ML IVPB SCH ×3 (05:19→21:18)
[2019-07-08] MEDS: PANTOPRAZOLE (EC) 40 MG TAB PO SCH (05:19)
[2019-07-08] MEDS: DOCUSATE SODIUM 100 MG CAP PO SCH (08:30)
[2019-07-08] MEDS: METOPROLOL 50 MG TAB PO SCH ×2 (08:30→21:18)
[2019-07-08] MEDS: MESALAMINE (SR) 250 MG CAP PO SCH ×4 (08:30→21:18)
[2019-07-08] MEDS: LACTOBACILLUS RHAMNOSUS CAP PO SCH ×2 (08:30→21:17)
[2019-07-08] MEDS: SERTRALINE 50 MG TAB PO SCH (08:31)
[2019-07-08] MEDS: ENOXAPARIN 100 MG/ML SYG SC SCH (09:08)
[2019-07-08] MEDS: DIGOXIN 500 MCG INJ IV SCH (13:39)
[2019-07-09] MEDS: morphine 2 MG INJ IV PRN ×2 (01:48→09:19)
[2019-07-09 04:52] VITALS: BP 107/61; PULSE 83; RESP 21
[2019-07-09] MEDS: PANTOPRAZOLE (EC) 40 MG TAB PO SCH (05:30)
[2019-07-09] MEDS: MEROPENEM 1 GM/50ML(PMX) 50 ML IVPB SCH ×3 (05:30→22:04)
[2019-07-09 07:26] VITALS: BP 89/62; PULSE 103; RESP 20
[2019-07-09] MEDS: MESALAMINE (SR) 250 MG CAP PO SCH ×3 (09:00→17:17)
[2019-07-09] MEDS: DILTIAZEM 25 MG INJ IV PRN (11:04)
[2019-07-09 11:37] VITALS: BP 99/62; PULSE 119; RESP 20
[2019-07-09] MEDS ORDERED: LIDOCAINE 1% (MDV) 20 ML INJ ONE (11:40)
[2019-07-09] MEDS: DILTIAZEM-D5W 125MG/125ML DRIP 125 ML IV SCH (12:04)
[2019-07-09] MEDS ORDERED: SOD CHLORIDE 0.9% 500 ML IV ONE (13:00)
[2019-07-09] MEDS: DOCUSATE SODIUM 100 MG CAP PO SCH (14:23)
[2019-07-09] MEDS: SERTRALINE 50 MG TAB PO SCH (14:23)
[2019-07-09] MEDS: LACTOBACILLUS RHAMNOSUS CAP PO SCH ×2 (14:24→22:04)
[2019-07-09] MEDS: DIGOXIN 500 MCG INJ IV SCH (14:26)
[2019-07-09] MEDS: METOPROLOL 50 MG TAB PO SCH ×2 (14:26→21:00)
[2019-07-09 15:18] VITALS: BP 100/71; PULSE 87; RESP 19
[2019-07-09 20:00] VITALS: BP 99/57; PULSE 69; RESP 18
[2019-07-10] MEDS: MESALAMINE (SR) 250 MG CAP PO SCH ×5 (00:29→21:28)
[2019-07-10] MEDS: morphine 2 MG INJ IV PRN (00:33)
[2019-07-10 00:54] VITALS: BP 100/63; PULSE 77; RESP 18
[2019-07-10 04:09] VITALS: BP 97/63; PULSE 72; RESP 18
[2019-07-10] MEDS: PANTOPRAZOLE (EC) 40 MG TAB PO SCH (06:12)
[2019-07-10] MEDS: MEROPENEM 1 GM/50ML(PMX) 50 ML IVPB SCH ×3 (06:13→21:27)
[2019-07-10 08:02] VITALS: BP 109/57; PULSE 77; RESP 18
[2019-07-10] MEDS: DOCUSATE SODIUM 100 MG CAP PO SCH (09:27)
[2019-07-10] MEDS: METOPROLOL 50 MG TAB PO SCH ×2 (09:27→21:00)
[2019-07-10] MEDS: SERTRALINE 50 MG TAB PO SCH (09:27)
[2019-07-10] MEDS: LACTOBACILLUS RHAMNOSUS CAP PO SCH ×2 (09:27→21:27)
[2019-07-10 11:21] VITALS: BP 98/66; RESP 18
[2019-07-10] MEDS: DIGOXIN 500 MCG INJ IV SCH (13:01)
[2019-07-10 15:53] VITALS: BP 92/51; PULSE 78; RESP 18
[2019-07-10] MEDS ORDERED: SOD CHLORIDE 0.9% 500 ML IV ONE (17:30)
[2019-07-10 19:53] VITALS: BP 92/57; PULSE 77; RESP 18
[2019-07-10] MEDS: ENOXAPARIN 100 MG/ML SYG SC SCH (21:30)
[2019-07-11] VITALS (10 sets, daily range): BP systolic 92–111; BP diastolic 50–72; PULSE 54–132; RESP 18–20
[2019-07-11] MEDS: morphine 2 MG INJ IV PRN ×2 (02:35→10:01)
[2019-07-11] MEDS: MEROPENEM 1 GM/50ML(PMX) 50 ML IVPB SCH ×4 (05:29→21:08)
[2019-07-11] MEDS: PANTOPRAZOLE (EC) 40 MG TAB PO SCH (05:29)
[2019-07-11] MEDS: METOPROLOL 50 MG TAB PO SCH ×2 (09:52→21:00)
[2019-07-11] MEDS: MESALAMINE (SR) 250 MG CAP PO SCH ×4 (09:52→22:09)
[2019-07-11] MEDS: DOCUSATE SODIUM 100 MG CAP PO SCH (09:53)
[2019-07-11] MEDS: SERTRALINE 50 MG TAB PO SCH (09:53)
[2019-07-11] MEDS: LACTOBACILLUS RHAMNOSUS CAP PO SCH ×2 (09:53→21:08)
[2019-07-11] MEDS: ENOXAPARIN 100 MG/ML SYG SC SCH ×2 (09:57→21:14)
[2019-07-11] MEDS: DILTIAZEM 25 MG INJ IV PRN (10:39)
[2019-07-11] MEDS: DIGOXIN 500 MCG INJ IV SCH (13:23)
[2019-07-12 00:07] VITALS: BP 94/52; PULSE 78; RESP 18
[2019-07-12 04:52] VITALS: BP 92/64; PULSE 88; RESP 18
[2019-07-12] MEDS: MEROPENEM 1 GM/50ML(PMX) 50 ML IVPB SCH ×2 (05:17→13:46)
[2019-07-12] MEDS: PANTOPRAZOLE (EC) 40 MG TAB PO SCH (05:17)
[2019-07-12 07:58] VITALS: BP 117/72; PULSE 72; RESP 18
[2019-07-12] MEDS: METOPROLOL 50 MG TAB PO SCH (08:59)
[2019-07-12] MEDS: LACTOBACILLUS RHAMNOSUS CAP PO SCH (09:00)
[2019-07-12] MEDS: DOCUSATE SODIUM 100 MG CAP PO SCH (09:00)
[2019-07-12] MEDS: MESALAMINE (SR) 250 MG CAP PO SCH ×3 (09:00→17:26)
[2019-07-12] MEDS: SERTRALINE 50 MG TAB PO SCH (09:00)
[2019-07-12] MEDS: ENOXAPARIN 100 MG/ML SYG SC SCH (09:01)
[2019-07-12 12:07] VITALS: BP 101/57; PULSE 60; RESP 18
[2019-07-12] MEDS: DIGOXIN 500 MCG INJ IV SCH (13:03)
[2019-07-12 16:29] VITALS: BP 112/56; PULSE 66; RESP 18
== END 2019-07-12 19:25 | DRG 385 ==
LOC: E/R 16:20 → ICU 20:45 → EDBEDREQSVC 20:46 → 6WM 07-04 14:02
PROVIDERS: ADMIT Family Medicine; ATTEND Internal Medicine
PROC: 0J9C30Z Drainage of Pelvic Region Subcutaneous Tissue and Fascia with Drainage Device, Percutaneous Approach (ICD-10-PCS; principal; 2019-06-28)
DX: K50.012 Crohn's disease of small intestine with intestinal obstruction (principal); K63.1 Perforation of intestine (nontraumatic); I48.20 Chronic atrial fibrillation, unspecified; I69.351 Hemiplegia and hemiparesis following cerebral infarction affecting right dominant side; J90 Pleural effusion, not elsewhere classified; J98.11 Atelectasis; K50.014 Crohn's disease of small intestine with abscess; I11.0 Hypertensive heart disease with heart failure; I50.9 Heart failure, unspecified; B02.9 Zoster without complications; J45.909 Unspecified asthma, uncomplicated; F17.200 Nicotine dependence, unspecified, uncomplicated; E78.5 Hyperlipidemia, unspecified; I05.0 Rheumatic mitral stenosis; K57.90 Diverticulosis of intestine, part unspecified, without perforation or abscess without bleeding; I48.91 Unspecified atrial fibrillation; K83.8 Other specified diseases of biliary tract; K82.8 Other specified diseases of gallbladder; K57.30 Diverticulosis of large intestine without perforation or abscess without bleeding; Z88.0 Allergy status to penicillin; E05.80 Other thyrotoxicosis without thyrotoxic crisis or storm; R73.03 Prediabetes; R62.7 Adult failure to thrive; Z68.26 Body mass index [BMI] 26.0-26.9, adult
CPT/HCPCS: 36415; 71045; 74177; 74181; 77012; 80048; 80053; 80076; 80162; 81001; 83036; 83690; 83735; 83880; 84100; 84145; 84439; 84443; 84480; 85025; 85049; 85610; 85651; 85670; 85730; 86021; 86140; 86850; 86900; 86901; 87070; 87075; 87081; 90686; 93005; 93306; 96361; 96374; 96375; 97110; 97116; 97162; 97530; C1729; C9113; J0133; J0696; J1610; J1650; J2185; J2250; J2270; J2405; J3010; J3480; J7030; J7040; Q9967